=== PATIENT | female | born 1930 | race Caucasian/White ===

== ENCOUNTER 2019-02-21 18:24 | Emergency (ER) | payer SELFPAY ==
[2019-02-21 19:24] LABS: Absolute Lymphocytes (CBC) 0.9 K/uL (0.7-4.9); Basophils % 0.8 % (0-1.3); Hematocrit 28.1 % (36.0-45.0); Lymphocytes % 10.9 % (15.3-44.8); MPV 7.9 fL (7.6-11.3); RBC Red Blood Cell Count 2.94 M/uL (3.86-4.86)
[2019-02-21 19:26] LABS: Protime INR 1.05
[2019-02-21 19:43] LABS: ALT/SGPT 14 U/L (12-78); AST/SGOT 15 U/L (15-37); Albumin 3.4 g/dL (3.4-5.0); Alkaline Phosphatase 88 U/L (45-117); BUN Blood Urea Nitrogen 20 mg/dL (7-18); Bicarbonate 29 mmol/L (21-32); Bilirubin Direct < 0.1 mg/dL (0-0.2); Bilirubin Total 0.2 mg/dL (0.2-1.0); Glucose Level 107 mg/dL (74-106); Magnesium 2.1 mg/dL (1.8-2.4); NT PRO-BNP 1458 pg/mL (<450); Potassium 3.8 mmol/L (3.5-5.1); Protein, Total 7.2 g/dL (6.4-8.2); Sodium Level 142 mmol/L (136-145); Troponin (Emerg Dept Use Only) < 0.02 ng/mL (0.0-0.045)
--- NOTE | 2019-02-21 19:55 | RAD REPORT ---
EXAM DESCRIPTION: CT - Head Brain Wo Cont - 02/21/2019 7:34 pm CLINICAL HISTORY: Weakness, slurred speech COMPARISON: None. TECHNIQUE: Axial 5 mm thick images of the head were obtained without IV contrast. All CT scans are performed using dose optimization technique as appropriate and may include automated exposure control or mA/KV adjustment according to patient size. FINDINGS: No intracranial hemorrhage, mass, edema or shift of mid-line structures. No acute cortical based infarction. No cortical edema or sulcal effacement. Moderate severity atrophy is present. Adva nced chronic ischemic changes are seen. No abnormal extra-axial fluid collections. Ventricles are in proportion to volume loss. Mastoid air cells and visualized portions of the paranasal sinuses are clear. No acute bony findings. IMPRESSION: No hemorrhage is present. No acute cortical based infarction seen. Moderate severity atrophy and advanced chronic ischemic changes are present. Chronic ischemic changes can mask nonhemorrhagic acute infarction. MR brain followup can be obtained if there is ongoing concern for acute ischemia.
[2019-02-21] MEDS ORDERED: FENTANYL CITR 100 MCG/2 ML ONE (20:00)
--- NOTE | 2019-02-21 20:56 | RAD REPORT ---
EXAM DESCRIPTION: RAD - Chest Single View - 02/21/2019 8:09 pm CLINICAL HISTORY: Weakness, shortness of breath COMPARISON: None. TECHNIQUE: AP portable chest image was obtained 1954 hours . FINDINGS: No focal lung parenchymal process. Interstitial pattern is accentuated by portable techniq ue. This is probably baseline. Heart and vasculature are normal. No measurable pleural effusion and n o pneumothorax. No acute bony abnormality seen. No acute aortic findings suspected. IMPRESSION: No acute cardiopulmonary process.
--- NOTE | 2019-02-21 20:57 | RAD REPORT ---
EXAM DESCRIPTION: RAD - Hip Left 2 View - 02/21/2019 8:09 pm CLINICAL HISTORY: Left hip pain COMPARISON: None. FINDINGS: AP and frogleg views of the left hip were obtained. There is no fracture or dislocation. N o AVN or focal femoral head abnormality. No significant degenerative change. Mild SI joint degenerati ve change present. Numerous phleboliths along the pelvic floor. No suspicious soft tissue finding. IMPRESSION: Negative left hip examination for acute or significant findings.
[2019-02-21 22:04] LABS: Urine Bacteria <20 /HPF (<20); Urine Culture Reflex Order NOT NEEDED; Urine RBC <5 /HPF (NONE SEEN)
[2019-02-21 22:46] LABS: Urine Blood NEGATIVE (NEG); Urine Glucose NEGATIVE (NEG); Urine Protein NEGATIVE (NEG); Urine Specific Gravity 1.015 (1.005-1.030); Urine pH 5.5 (5.0-7.0)
--- NOTE | 2019-02-21 22:53 | ER ---
Nurse's Notes 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 Transition of care: patient was not received from another setting of care. Onset of symptoms was February 21, 2019. Risk Assessment: Do you want to hurt yourself or someone else? Patient reports no desire to harm self or others. Initial Sepsis Screen: Does the patient meet any 2 criteria? No. Patient's initial sepsis screen is negative. Does the patient have a suspected source of infection? No. Patient's initial sepsis screen is negative. Care prior to arrival: Glucose check: 108. 18:34 Method Of Arrival: EMS: [facility] 18:34 Acuity: NELLIE 3 ph Historical: - Allergies: 18:39 PENICILLINS; ph - PMHx: 18:39 CVA; Hypertension; ph - Immunization history:: Adult Immunizations up to date. - Social history:: Smoking status: Patient/guardian denies using tobacco. - Ebola Screening: : Patient negative for fever greater than or equal to 101.5 degrees Fahrenheit, and additional compatible Ebola Virus Disease symptoms. Screenin:14 Abuse screen: Denies threats or abuse. Nutritional screening: No deficits noted. jd3 Tuberculosis screening: No symptoms or risk factors identified. VAN Screening: Arm Drift: Patient shows no arm weakness. Patient is VAN negative. Fall Risk Ambulatory Aid- Crutches/Cane/Walker (15 pts). Gait- Weak (10 pts.). Mental Status- Oriented to own ability (0 pts). Total Anton Fall Scale indicates Low Risk Score (25-44 pts). Fall prevention measures have been instituted. Side Rails Up X 2 Placed close to Nursing Station Frequent Obs/Assesments occuring Family Present and informed to notify staff if they need to leave bedside. Assessment: 19:11 General: Appears in no apparent distress. uncomfortable, Behavior is calm, cooperative, jd3 appropriate for age. Pain: Complains of pain in left hip Quality of pain is described as aching. Neuro: Level of Consciousness is awake, alert, obeys commands, Oriented to person, place, time, situation, Weakness Speech is slurred, Reports reports history of CVA with right sided deficits. family reports increased right sided deficits. last seen normal was 1200 02/21/19.. Cardiovascular: Heart tones S1 S2 present Capillary refill < 3 seconds Patient's skin is warm and dry. Respiratory: Airway is patent Respiratory effort is even, unlabored, Respiratory pattern is regular, symmetrical, Breath sounds are clear bilaterally. GI: No signs and/or symptoms were reported involving the gastrointestinal system. : No signs and/or symptoms were reported regarding the genitourinary system. EENT: No signs and/or symptoms were reported regarding the EENT system. Derm: Skin is intact, Skin is dry, Skin is normal, Skin temperature is warm. Musculoskeletal: Circulation, motion, and sensation intact. 19:57 Reassessment: Patient appears in no apparent distress at this time. Patient and/or jd3 family updated on plan of care and expected duration. Pain level reassessed. Patient is alert, oriented x 3, equal unlabored respirations, skin warm/dry/pink. 20:59 Reassessment: Patient appears in no apparent distress at this time. No changes from jd3 previously documented assessment. Patient and/or family updated on plan of care and expected duration. Pain level reassessed. Patient is alert, oriented x 3, equal unlabored respirations, skin warm/dry/pink. 21:49 Reassessment: Patient appears in no apparent distress at this time. Patient and/or jd3 family updated on plan of care and expected duration. Pain level reassessed. Patient is alert, oriented x 3, equal unlabored respirations, skin warm/dry/pink. awaiting results and disposition form provider. IV is sialine locked with clean site, no redness or swelling noted to the area. pt in bed with rails up X 2. call santiago in reach, family at bedside. Patient states feeling better. 22:51 Reassessment: Patient appears in no apparent distress at this time. Patient and/or jd3 family updated on plan of care and expected duration. Pain level reassessed. Patient is alert, oriented x 3, equal unlabored respirations, skin warm/dry/pink. awaiting disposition. 23:00 Reassessment: call made to [facility] spoke to grace thru phone rr5 she said to call mr ramírez for the transportation. 23:17 Reassessment: Patient appears in no apparent distress at this time. Patient and/or jd3 family updated on plan of care and expected duration. Pain level reassessed. Patient is alert, oriented x 3, equal unlabored respirations, skin warm/dry/pink. family reported understanding of discharge instructions, assisted pt to car with wheelchair. Vital Signs: 18:38 BP 129 / 53; Pulse 69; Resp 18; Temp 98.2; Pulse Ox 100% on R/A; ph 19:56 BP 159 / 97; Pulse 75; Resp 18 S; Pulse Ox 98% on R/A; jd3 20:58 BP 130 / 89; Pulse 71; Resp 17 S; Pulse Ox 99% on R/A; jd3 21:51 BP 164 / 62; Pulse 76; Resp 17 S; Pulse Ox 99% on R/A; jd3 22:52 BP 149 / 62; Pulse 74; Resp 17 S; Pulse Ox 100% on R/A; jd3 NIH Stroke Scale Scores: 18:53 NIHSS Score: 1 jr ED Course: 18:30 Patient arrived in ED. ph 18:34 Edin Emerson PA is PHCP. jr8 18:34 German Lazaro MD is Attending Physician. jr8 18:38 Triage completed. ph 18:39 Arm band placed on Patient placed in an exam room. ph 19:02 Germaine Beck, RN is Primary Nurse. ph 19:03 Jeff Lamas, MADDY is Primary Nurse. jd3 19:15 Inserted saline lock: 22 gauge in right antecubital area, using aseptic technique. jd3 Blood collected. placed by [facility]. 19:16 Patient has correct armband on for positive identification. Placed in gown. Bed in low jd3 position. Call light in reach. Side rails up X2. Adult w/ patient. 19:34 CT completed. Patient tolerated procedure well. Patient moved back from CT. bq 21:45 Straight cath inserted, using sterile technique, 16 Fr. Specimen obtained. Returned jd3 clear yellow urine. Patient tolerated well. 23:17 No provider procedures requiring assistance completed. IV discontinued, intact, jd3 bleeding controlled, No redness/swelling at site. Pressure dressing applied. Administered Medications: 20:07 Drug: fentaNYL (PF) 25 mcg {Note: rass 0.} Route: IVP; Site: right antecubital; rr5 21:05 Follow up: Response: No adverse reaction jd3 Outcome: 22:52 Discharge ordered by MD. cueva 23:17 Discharged to home via wheelchair, with family. jd3 23:17 Condition: stable 23:17 Discharge instructions given to patient, family, Instructed on discharge instructions, follow up and referral plans. Demonstrated understanding of instructions, follow-up care. 23:18 Patient left the ED. jd3 NIH Stroke Scale - NIH Stroke Score Date: 02/21/2019 Time: 18:53 Total Score = 1 1a. Level of Consciousness (LOC) - 0(Alert) 1b. Level of Consciousness (LOC) (Year \T\ Age) - 0(Both) 1c. LOC Commands (Open \T\ Closes Eyes/Well Puller) - 0(Both) 2. Best Gaze (Lateral Gaze Paresis) - 0(Normal) 3. Visual Field Loss - 0(No visual loss) 4. Facial Palsy - 0(Normal) 5a. Left Arm: Motor (10-second hold) - 0(No drift) 5b. Right Arm: Motor (10-second hold) - 0(No drift) 6a. Left Leg: Motor (5-second hold - always test supine) - 0(No drift) 6b. Right Leg: Motor (5-second hold - always test supine) - 0(No drift) 7. Limb Ataxia (finger/nose \T\ heel/swift - test with eyes open) - 0(Absent) 8. Sensory Loss (pinprick arms/legs/face) - 0(Normal) 9. Best Language: Aphasia (description/naming/reading) - 0(No aphasia) 10. Dysarthria (speech clarity - read or repeat words) - 1(Mild to Moderate) 11. Extinction and Inattention (visual/tactile/auditory/spatial/personal) - 0(No abnormality) Initials: 8 Signatures: Verna Raymond Josh, PA PA jr8 Germaine Beck, RN RN Jeff Estevez RN RN jd3 Fernando Guillen, RN RN rr5 Corrections: (The following items were deleted from the chart) 21:53 21:49 Reassessment: Patient appears in no apparent distress at this time. jd3 Patient and/or family updated on plan of care and expected duration. Pain level reassessed. Patient is alert, oriented x 3, equal unlabored respirations, skin warm/dry/pink. awaiting results and disposition form provider. IV is sialine locked with clean site, no redness or swelling noted to the area. pt in bed with rails up X 2. call santiago in reach, family at bedside. Patient states feeling better. jjass
--- NOTE | 2019-02-21 22:53 | EDPHYS ---
Physician Documentation [facility] Name: Verna Talbert Age: 88 yrs Sex: Female : 1930 Arrival Date: 02/21/2019 Time: 18:30 Bed 6 Private MD: ALLA Physician German Lazaro HPI: 02/21 18:53 This 88 yrs old Female presents to ER via EMS with complaints of General jr8 Weakness. 18:53 The patient's problem is reported as dysphasia, slurred speech, slow speech. Onset: The jr8 symptoms/episode began/occurred acutely, today. Duration: This was a single incident. Context: the episode(s) [facility], [facility], symptoms became apparent at 12:00. The symptoms are alleviated by nothing. The symptoms are aggravated by nothing. Associated signs and symptoms: The patient has no apparent associated signs or symptoms. Severity of symptoms: At their worst the symptoms were mild in the emergency department the symptoms are unchanged. Patient's baseline: Neuro: alert and fully oriented, Motor: right-sided weakness, Ambulation: walks with assist only, uses walker, Speech: slow, slurred, The patient has a previous history of CVA. It is unknown whether or not the patient has had similar symptoms in the past. The patient has been recently seen by a physician: the patient's primary care provider. Patient per family had recent stroke this past December. Has been in and out of hospitals and rehab. Stated that she had to get off her Eliquis from bleeding complications. Came in today for increased slurred speech and general weakness. Normally can utilize walker but today has been unable too . Historical: - Allergies: 18:39 PENICILLINS; ph - PMHx: 18:39 CVA; Hypertension; ph - Immunization history:: Adult Immunizations up to date. - Social history:: Smoking status: Patient/guardian denies using tobacco. - Ebola Screening: : Patient negative for fever greater than or equal to 101.5 degrees Fahrenheit, and additional compatible Ebola Virus Disease symptoms. ROS: 18:53 Eyes: Negative for injury, pain, redness, and discharge, ENT: Negative for injury, jr8 pain, and discharge, Neck: Negative for injury, pain, and swelling, Cardiovascular: Negative for chest pain, palpitations, and edema, Respiratory: Negative for shortness of breath, cough, wheezing, and pleuritic chest pain, Abdomen/GI: Negative for abdominal pain, nausea, vomiting, diarrhea, and constipation, Back: Negative for injury and pain, MS/Extremity: Negative for injury and deformity, Skin: Negative for injury, rash, and discoloration. 18:53 Neuro: Positive for speech changes, weakness. Exam: 18:53 Eyes: Pupils equal round and reactive to light, extra-ocular motions intact. Lids and jr8 lashes normal. Conjunctiva and sclera are non-icteric and not injected. Cornea within normal limits. Periorbital areas with no swelling, redness, or edema. ENT: Nares patent. No nasal discharge, no septal abnormalities noted. Tympanic membranes are normal and external auditory canals are clear. Oropharynx with no redness, swelling, or masses, exudates, or evidence of obstruction, uvula midline. Mucous membranes moist. Neck: Trachea midline, no thyromegaly or masses palpated, and no cervical lymphadenopathy. Supple, full range of motion without nuchal rigidity, or vertebral point tenderness. No Meningismus. Cardiovascular: Regular rate and rhythm with a normal S1 and S2. No gallops, murmurs, or rubs. Normal PMI, no JVD. No pulse deficits. Respiratory: Lungs have equal breath sounds bilaterally, clear to auscultation and percussion. No rales, rhonchi or wheezes noted. No increased work of breathing, no retractions or nasal flaring. Abdomen/GI: Soft, non-tender, with normal bowel sounds. No distension or tympany. No guarding or rebound. No evidence of tenderness throughout. Back: No spinal tenderness. No costovertebral tenderness. Full range of motion. Skin: Warm, dry with normal turgor. Normal color with no rashes, no lesions, and no evidence of cellulitis. MS/ Extremity: Pulses equal, no cyanosis. Neurovascular intact. Full, normal range of motion. 18:53 Neuro: Orientation: to person, place \T\ time. Mentation: lucid, able to follow commands, Memory: is normal, Cranial nerves: CN I not tested, CN II- XII are normal as tested, extraocular movements are intact, Nystagmus is absent. Speech is slowed, slurred, Tongue strength is normal, Cerebellar function: normal finger to nose testing, Motor: moves all fours, strength is 4/5 in the right hand, left hand, right foot, left foot, right arm, left arm, right leg and left leg, Sensation: no obvious gross deficits, Gait: not tested. seizure activity, is not displayed by the patient, Abnormal movements: there are no abnormal movements. 22:52 Radiologist reports: negative [facility] Vital Signs: 18:38 BP 129 / 53; Pulse 69; Resp 18; Temp 98.2; Pulse Ox 100% on R/A; ph 19:56 BP 159 / 97; Pulse 75; Resp 18 S; Pulse Ox 98% on R/A; jd3 20:58 BP 130 / 89; Pulse 71; Resp 17 S; Pulse Ox 99% on R/A; jd3 21:51 BP 164 / 62; Pulse 76; Resp 17 S; Pulse Ox 99% on R/A; jd3 22:52 BP 149 / 62; Pulse 74; Resp 17 S; Pulse Ox 100% on R/A; jd3 NIH Stroke Scale Scores: 18:53 NIHSS Score: 1 [facility] MDM: 18:34 Patient medically screened. [facility] 22:50 Data reviewed: vital signs, nurses notes, lab test result(s), EKG, radiologic studies, jr8 CT scan, plain films. Data interpreted: Pulse oximetry: on room air is 99 %. Interpretation: normal. Counseling: I had a detailed discussion with the patient and/or guardian regarding: the historical points, exam findings, and any diagnostic results supporting the discharge/admit diagnosis, lab results, radiology results, the need for outpatient follow up, a family practitioner, a neurologist, to return to the emergency department if symptoms worsen or persist or if there are any questions or concerns that arise at home. ED course: Patient at baseline currently. No acute findings on labs, CT, EKG, or CXR. Will let patient go back to [place] since she is feeling well and with no complaint at this time. Family agrees and without any complaint or concern as well . 02/21 18:35 Order name: Basic Metabolic Panel [facility] 02/21 18:35 Order name: CBC with Diff [facility] 02/21 18:35 Order name: LFT's [facility] 02/21 18:35 Order name: Magnesium [facility] 02/21 18:35 Order name: NT PRO-BNP 02/21 18:35 Order name: PT-INR [facility] 02/21 18:35 Order name: Troponin (emerg Dept Use Only) [facility] 02/21 19:25 Order name: CBC with Automated Diff; Complete Time: 19:39 EDMS 02/21 19:26 Order name: Protime (+INR); Complete Time: 19:39 EDMS 02/21 19:44 Order name: Basic Metabolic Panel; Complete Time: 20:22 EDMS 02/21 19:44 Order name: Liver (Hepatic) Function; Complete Time: 20:22 EDMS 02/21 19:44 Order name: Troponin (Emerg Dept Use Only); Complete Time: 20:22 EDMS 02/21 19:44 Order name: NT PRO-BNP; Complete Time: 20:22 EDMS 02/21 19:44 Order name: Magnesium; Complete Time: 20:22 EDMS 02/21 18:35 Order name: XRAY Chest (1 view) [facility] 02/21 18:35 Order name: EKG; Complete Time: 18:36 [facility] 02/21 18:35 Order name: Cardiac monitoring; Complete Time: 19:58 [facility] 02/21 18:35 Order name: EKG - Nurse/Tech; Complete Time: 19:58 [facility] 02/21 18:35 Order name: IV Saline Lock; Complete Time: 19:58 [facility] 02/21 18:35 Order name: Labs collected and sent; Complete Time: 19:58 [facility] 02/21 18:35 Order name: O2 Per Protocol; Complete Time: 19:03 [facility] 02/21 18:35 Order name: O2 Sat Monitoring; Complete Time: 19:03 [facility] 02/21 18:47 Order name: XRAY Hip LEFT 2 view [facility] 02/21 19:11 Order name: CT Head Brain wo Cont [facility] 02/21 20:58 Order name: CT; Complete Time: 21:02 EDMS 02/21 21:27 Order name: Urine Microscopic Only [facility] 02/21 21:33 Order name: RAD; Complete Time: 21:57 EDMS 02/21 21:33 Order name: RAD; Complete Time: 21:57 EDMS 02/21 22:05 Order name: Urine Dipstick--Ancillary (enter results); Complete Time: 22:50 ar5 02/21 21:27 Order name: Urine Dipstick-Ancillary (obtain specimen); Complete Time: 21:46 jr8 02/21 21:27 Order name: Straight Cath; Complete Time: 21:43 jr8 Administered Medications: 20:07 Drug: fentaNYL (PF) 25 mcg {Note: rass 0.} Route: IVP; Site: right antecubital; rr5 21:05 Follow up: Response: No adverse reaction jd3 Disposition: 02/22 13:24 Co-signature as Attending Physician, German Lazaro MD I agree with the assessment and anmol plan of care. Disposition: 02/21/19 22:52 Discharged to Home. Impression: Weakness, Dysphasia. - Condition is Stable. - Discharge Instructions: Weakness. - Medication Reconciliation Form, Thank You Letter, Antibiotic Education, Prescription Opioid Use form. - Follow up: Private Physician; When: 1 - 2 days; Reason: Recheck today's complaints, Continuance of care, Re-evaluation by your physician. - Problem is new. - Symptoms have improved. NIH Stroke Scale - NIH Stroke Score Date: 02/21/2019 Time: 18:53 Total Score = 1 1a. Level of Consciousness (LOC) - 0(Alert) 1b. Level of Consciousness (LOC) (Year \T\ Age) - 0(Both) 1c. LOC Commands (Open \T\ Closes Eyes/[employer]er Interior Assemblies) - 0(Both) 2. Best Gaze (Lateral Gaze Paresis) - 0(Normal) 3. Visual Field Loss - 0(No visual loss) 4. Facial Palsy - 0(Normal) 5a. Left Arm: Motor (10-second hold) - 0(No drift) 5b. Right Arm: Motor (10-second hold) - 0(No drift) 6a. Left Leg: Motor (5-second hold - always test supine) - 0(No drift) 6b. Right Leg: Motor (5-second hold - always test supine) - 0(No drift) 7. Limb Ataxia (finger/nose \T\ heel/swift - test with eyes open) - 0(Absent) 8. Sensory Loss (pinprick arms/legs/face) - 0(Normal) 9. Best Language: Aphasia (description/naming/reading) - 0(No aphasia) 10. Dysarthria (speech clarity - read or repeat words) - 1(Mild to Moderate) 11. Extinction and Inattention (visual/tactile/auditory/spatial/personal) - 0(No abnormality) Initials: jr8 Signatures: Dispatcher [employer] EDGerman Foster MD MD cha Roszak, Josh, PA PA jr8 Germaine Beck, RN RN Jeff Estevez RN RN jd3 Fernando Guillen RN RN rr5 Corrections: (The following items were deleted from the chart) 02/21 23:18 22:52 02/21/2019 22:52 Discharged to Home. Impression: Weakness; Dysphasia. jd3 Condition is Stable. Forms are Medication Reconciliation Form, Thank You Letter, Antibiotic Education, Prescription Opioid Use. Follow up: Private Physician; When: 1 - 2 days; Reason: Recheck today's complaints, Continuance of care, Re-evaluation by your physician. Problem is new. Symptoms have improved. jr8
[2019-02-21 23:33] VITALS: TEMP 98.2
[2019-02-21 23:38] VITALS: BP 149/62; O2SAT 100
--- NOTE | 2019-02-22 12:45 | EKG ---
Test Date: 2019-02-21 Test Time: 19:39:45 Infection Control Preventionist: ROGER MEASUREMENT RESULTS: Intervals: Rate: 64 SC: 234 QRSD: 118 QT: 442 QTc: 455 [place]: P: 89 SC: 234 QRS: 35 T: 231 INTERPRETIVE STATEMENTS: Sinus rhythm with 1st degree AV block Incomplete left bundle branch block ST & T wave abnormality, consider inferolateral ischemia Abnormal ECG No previous ECG available for comparison Electronically Signed On 02-22-19 12:43:40 STORE TEAM MEMBER by Migue Greene
== END 2019-02-21 23:18 | disposition home or self-care (01) ==
LOC: ER 18:24
DX: R53.1 Weakness (principal); I10 Essential (primary) hypertension; Z86.73 Personal history of transient ischemic attack (TIA), and cerebral infarction without residual deficits; Z88.0 Allergy status to penicillin
CPT/HCPCS: 36415; 51702; 70450; 71045; 80048; 80076; 81003; 81015; 83735; 83880; 84484; 85025; 85610; 93005; 96374; 99284; J3010

== ENCOUNTER 2019-03-14 13:12 | Emergency (ER) | payer OTHER ==
--- OUTSIDE RECORDS SUMMARY | 2019-03-14 13:15 | XMS REPORT ---
:1930 [facility] [address] [place] [address] Care Team Providers Name Role Phone SMILEY VARELA Unavailable Unavailable Problems This patient has no known problems. Allergies, Adverse Reactions, Alerts Allergy Name Allergy Status Severity Reaction(s) Onset Inactive Treating Comments Type Date Date Clinician penicillin G DA Active SV 2017-01 00:00:0 0 Medications This patient has no known medications. Procedures and Interventions Procedure Date / Time Performed Performing Clinician 0HBRXLOI 2019-01-07 00:00:00 0HBRXZZ 2019-01-07 00:00:00 0HBRXZZ 2019-01-07 00:00:00 Results Test Description Test Time Test Comments Text Results Atomic Results Result Comments TROPONIN-I 2019-01-29 17:49:00 Test Item Value Reference Range Comments TROPONIN-I (test code=TROPI) 0.016 NG/ML 0.000-0.045 Negative: </=0.045 Positive: >/=0.046 Correlation with serial results, other cardiac markers, and clinical findings is necessary to determine the clinical significance of this result. Quantitative results using different methodologies should not be compared to one another as numerical results may varyby method. CBC W/PLT COUNT & AUTO [id number] 11:50:00 Test Item Value Reference Range Comments WHITE BLOOD CELL COUNT (BEAKER) (test saqc=887) 8.6 K/ L 3.5-10.5 RED BLOOD CELL COUNT (BEAKER) (test xdvo=599) 3.62 M/ L 3.93-5.22 HEMOGLOBIN (BEAKER) (test vdyq=676) 11.5 GM/DL 11.2-15.7 HEMATOCRIT (BEAKER) (test yita=793) 34.9 % 34.1-44.9 MEAN CORPUSCULAR VOLUME (BEAKER) (test knre=945) 96.4 fL 79.4-94.8 MEAN CORPUSCULAR HEMOGLOBIN (BEAKER) (test 31.8 pg 25.6-32.2 xgve=321) MEAN CORPUSCULAR HEMOGLOBIN CONC (BEAKER) (test 33.0 GM/DL 32.2-35.5 hzhi=547) RED CELL DISTRIBUTION WIDTH (BEAKER) (test 13.2 % 11.7-14.4 hioi=916) PLATELET COUNT (BEAKER) (test ymda=598) 199 K/CU MM 150-450 MEAN PLATELET VOLUME (BEAKER) (test ifec=136) 9.9 fL 9.4-12.3 NUCLEATED RED BLOOD CELLS (BEAKER) (test 0 /100 WBC 0-0 gbvw=095) (CELLAVISION MANUAL DIFF)2018-12-22 11:50:00 Test Item Value Reference Range Comments NEUTROPHILS - REL (CELLAVISION)(BEAKER) (test 63 % pbfx=4731) LYMPHOCYTES - REL (CELLAVISION)(BEAKER) (test 17 % toau=4421) MONOCYTES - REL (CELLAVISION)(BEAKER) (test 14 % vxef=9612) EOSINOPHILS - REL (CELLAVISION)(BEAKER) (test 3 % fwlq=2240) PROMYELOCYTES - REL (CELLAVSION)(BEAKER) (test 1 % 0-0 mzlb=6693) BANDS - REL (CELLAVISION)(BEAKER) (test hqjy=7082) 1 % 0-10 ATYPICAL LYMPHOCYTES - REL (CELLAVISION)(BEAKER) 1 % 0-0 (test nyqq=8662) NEUTROPHILS - ABS (CELLAVISION)(BEAKER) (test 5.42 K/ul 1.56-6.13 acij=1562) LYMPHOCYTES - ABS (CELLAVISION)(BEAKER) (test 1.46 K/ul 1.18-3.74 vgmh=6879) MONOCYTES - ABS (CELLAVISION)(BEAKER) (test 1.20 K/uL 0.24-0.36 xgcn=4780) EOSINOPHILS - ABS (CELLAVISION)(BEAKER) (test 0.26 K/uL 0.04-0.36 tkps=3479) PROMYELOCYTES - ABS (CELLAVISION)(BEAKER) (test 0.09 K/uL 0.00-0.00 ngzd=0347) BANDS - ABS (CELLAVISION)(BEAKER) (test cvsh=7293) 0.09 K/uL 0.00-0.80 ATYPICAL LYMPHOCYTES - ABS (CELLAVISION)(BEAKER) 0.09 K/uL 0.00-0.00 (test hghm=7197) TOTAL COUNTED (BEAKER) (test sknr=4712) 100 RBC MORPHOLOGY (BEAKER) (test cuky=386) Normal WBC MORPHOLOGY (BEAKER) (test nyox=483) Normal PLT MORPHOLOGY (BEAKER) (test agkj=876) Normal ARTIFACT (CELLAVISION)(BEAKER) (test fcxb=2113) Present PLATELET CONCENTRATION (CELLAVISION)(BEAKER) (test Adequate ozjv=7783) Received comment: User comments: Slide comments:BASIC METABOLIC [id number] 05:52:00 Test Item Value Reference Range Comments SODIUM (BEAKER) (test 142 meq/L 136-145 bylg=417) POTASSIUM (BEAKER) (test 3.8 meq/L 3.5-5.1 Specimen slightly sjzm=676) hemolyzed CHLORIDE (BEAKER) (test 107 meq/L 98-107 bzre=560) CO2 (BEAKER) (test 25 meq/L 22-29 cenw=707) BLOOD UREA NITROGEN 29 mg/dL 7-21 (BEAKER) (test srei=037) CREATININE (BEAKER) (test 1.57 mg/dL 0.57-1.25 Specimen slightly djtj=141) hemolyzed GLUCOSE RANDOM (BEAKER) 109 mg/dL 70-105 (test pzpf=021) CALCIUM (BEAKER) (test 9.7 mg/dL 8.4-10.2 jhna=809) EGFR (BEAKER) (test 31 mL/min/1.73 sq m ESTIMATED GFR IS NOT pqnr=5123) ACCURATE CREATININE CLEARANCE IN PREDICTING GLOMERULAR FILTRATION RATE. ESTIMATED GFR IS NOT APPLICABLE FOR DIALYSIS PATIENTS. TROPONIN [id number] 06:35:00 Test Item Value Reference Range Comments TROPONIN I (BEAKER) (test pnrm=366) 0.02 ng/mL 0.00-0.03 Troponin I (TnI) levels must be interpreted in the context of the presenting symptoms and the clinical findings. Elevated TnI levels indicate myocardial damage, but are not specific for ischemic heart disease. Elevated TnI levels are seen in patients with other cardiac conditions (including myocarditis and congestive heart failure), and slight TnI elevations occur in patients with other conditions, including sepsis, renal failure, acidosis, acute neurological disease, and persistent tachyarrhythmia.BASIC METABOLIC [id number] 09:18:00 Test Item Value Reference Range Comments SODIUM (BEAKER) (test 140 meq/L 136-145 ehja=383) POTASSIUM (BEAKER) (test 4.5 meq/L 3.5-5.1 jepm=001) CHLORIDE (BEAKER) (test 108 meq/L 98-107 ywsz=061) CO2 (BEAKER) (test cajn=072) 23 meq/L 22-29 BLOOD UREA NITROGEN (BEAKER) 36 mg/dL 7-21 (test jjha=930) CREATININE (BEAKER) (test 1.65 mg/dL 0.57-1.25 ipbd=185) GLUCOSE RANDOM (BEAKER) 102 mg/dL 70-105 (test tszo=791) CALCIUM (BEAKER) (test 9.4 mg/dL 8.4-10.2 fwiz=486) EGFR (BEAKER) (test INSUFFICIENT CLINICAL DATA TO tyrh=7738) CALCULATE ESTIMATED GFR. HEMOGLOBIN [id number] 08:56:00 Test Item Value Reference Range Comments HEMOGLOBIN A1C (BEAKER) (test favj=853) 5.7 % 4.3-6.1 TROPONIN [id number] 08:29:00 Test Item Value Reference Range Comments TROPONIN I (BEAKER) (test rifb=703) 0.04 ng/mL 0.00-0.03 Troponin I (TnI) levels must be interpreted in the context of the presenting symptoms and the clinical findings. Elevated TnI levels indicate myocardial damage, but are not specific for ischemic heart disease. Elevated TnI levels are seen in patients with other cardiac conditions (including myocarditis and congestive heart failure), and slight TnI elevations occur in patients with other conditions, including sepsis, renal failure, acidosis, acute neurological disease, and persistent tachyarrhythmia.POCT-GLUCOSE [id number] 05:12:00 Test Item Value Reference Range Comments POC-GLUCOSE METER (LYNETTE) 111 mg/dL 70-[address] [facility] [address] (test prwk=1178) [facility] [address] [address]AY - LOW MOLECULAR [id number] 03:28:00 Test Item Value Reference Range Comments LOVENOX-ANTI 10A (LYNETTE) (test rztl=6019) > u/ml 0.60-2.00 Anti-Factor 10-A Level (Heparin Assay for Low Molecular Weight Heparin) Monitoring Guidelines: Blood samples should be obtained 4 hours post subcutaneous injection (time of Peak level) Therapeutic Peak Levels: 0.6-1.0 units/mL twice daily enoxaparin 1.0-2.0 units/mL once daily enoxaparinRef: CHEST 2012;141:[id number] 01:36:00 Test Item Value Reference Range Comments TROPONIN I (LYNETTE) (test emju=973) 0.03 ng/mL 0.00-0.03 Troponin I (TnI) levels must be interpreted in the context of the presenting symptoms and the clinical findings. Elevated TnI levels indicate myocardial damage, but are not specific for ischemic heart disease. Elevated TnI levels are seen in patients with other cardiac conditions (including myocarditis and congestive heart failure), and slight TnI elevations occur in patients with other conditions, including sepsis, renal failure, acidosis, acute neurological disease, and persistent tachyarrhythmia.MR, BRAIN, WITHOUT [id number] 00 :29:00Reason for exam:->Ischemic Stroke EvaluationFINAL REPORT Exam: MRI brain without contrast. Comparison: None. Clinical indication: Ischemic Stroke Evaluation; facial droop and slurred speech Technique: Multiplanar multi sequential MR imaging of the brain was performed without the administration of intravenous contrast. Findings:There are foci of restricted diffusion in the posterior limb of the left internal capsule consistent with an acute infarct. There is a chronic hemorrhagic right basal ganglia infarct. There are moderate white matter microvascular ischemic changes. There are tiny foci of susceptibility artifact in the bilateral cerebral hemispheres and left frontal lobe compatible with remote microhemorrhages. There is no acute intracranial hemorrhage, intracranial mass, mass effect, extra-axial collection, hydrocephalus or herniation. The skull base flow-voids are seen in keeping with their patency. The visualized paranasal sinuses and mastoid air cells are clear. There are bilateral lens replacements. The sella and parasellar regions are unremarkable. The craniocervical junction is normal. Impression:Acute infarct in the posterior limb of the left internal capsule. No acute intracranial hemorrhage or mass effect.Moderate white matter microvascular ischemic changes. Chronic hemorrhagic right basal ganglia infarct.Remote microhemorrhages in the supratentorial and infratentorial brain. Findings discussed with covering neurology resident at approximately 12:29 AM 12/19/2018. Signed: Rosita Yepez MDReport Verified Date/Time: 12/19/2018 00:29:42 LIPID [id number] 22:50:00 Test Item Value Reference Range Comments TRIGLYCERIDES (BEAKER) (test vjis=463) 233 mg/dL CHOLESTEROL (BEAKER) (test ygql=180) 210 mg/dL HDL CHOLESTEROL (BEAKER) (test bkkg=388) 36 mg/dL LDL CHOLESTEROL CALCULATED (BEAKER) (test 127 mg/dL iwet=636) Triglyceride Reference Range: Low Risk <150 Borderline 150- 199 High Risk 200-499 Very High Risk >=500Cholesterol Reference Range: Low Risk <200 Borderline 200-239 High Risk > 240HDL Cholesterol Reference Range: Low Risk >=60 High Risk <40LDL Cholesterol Reference Range: Optimal <100 Near Optimal 100-129 Borderline 130-159 High 160-189 Very High >=190TSH/FREE T4 IF [id number] 22:16:00 Test Item Value Reference Range Comments THYROID STIMULATING HORMONE (BEAKER) (test 1.75 uIU/mL 0.35-4.94 ncct=992) VITAMIN B12 AND [id number] 22:16:00 Test Item Value Reference Range Comments VITAMIN B12 (BEAKER) (test ybey=889) 1068 pg/mL 213-816 FOLATE (BEAKER) (test cqyg=632) > ng/mL >=7.0 B-TYPE NATRIURETIC FACTOR (BNP)2018-12-18 19:07:00 Test Item Value Reference Range Comments B-TYPE NATRIURETIC PEPTIDE (BEAKER) (test 162 pg/mL 0-100 koyk=681) TROPONIN [id number] 19:06:00 Test Item Value Reference Range Comments TROPONIN I (BEAKER) (test ygkn=609) 0.01 ng/mL 0.00-0.03 Troponin I (TnI) levels must be interpreted in the context of the presenting symptoms and the clinical findings. Elevated TnI levels indicate myocardial damage, but are not specific for ischemic heart disease. Elevated TnI levels are seen in patients with other cardiac conditions (including myocarditis and congestive heart failure), and slight TnI elevations occur in patients with other conditions, including sepsis, renal failure, acidosis, acute neurological disease, and persistent tachyarrhythmia.BASIC METABOLIC [id number] 19:04:00 Test Item Value Reference Range Comments SODIUM (BEAKER) (test 137 meq/L 136-145 esfk=329) POTASSIUM (BEAKER) (test 4.2 meq/L 3.5-5.1 ymfx=137) CHLORIDE (BEAKER) (test 104 meq/L 98-107 sdxf=957) CO2 (BEAKER) (test vfyg=564) 25 meq/L 22-29 BLOOD UREA NITROGEN (BEAKER) 46 mg/dL 7-21 (test kpji=011) CREATININE (BEAKER) (test 1.85 mg/dL 0.57-1.25 udmz=299) GLUCOSE RANDOM (BEAKER) 106 mg/dL 70-105 (test aizt=546) CALCIUM (BEAKER) (test 9.9 mg/dL 8.4-10.2 yzcm=936) EGFR (BEAKER) (test INSUFFICIENT CLINICAL DATA TO wlqr=5895) CALCULATE ESTIMATED GFR. [id number] 18:59:00 Test Item Value Reference Range Comments MAGNESIUM (BEAKER) (test xemm=092) 1.9 mg/dL 1.6-2.6 CREATINE KINASE (CK)2018-12-18 18:59:00 Test Item Value Reference Range Comments CREATINE KINASE TOTAL (BEAKER) (test rrfv=625) 199 U/L 29-200 URINALYSIS W/ [id number] 18:55:00 Test Item Value Reference Range Comments COLOR (BEAKER) (test gphv=808) Yellow CLARITY (BEAKER) (test ehgy=223) Clear SPECIFIC GRAVITY UA (BEAKER) (test xbfu=261) 1.021 1.001-1.035 PH UA (BEAKER) (test jlja=280) 7.0 5.0-8.0 PROTEIN UA (BEAKER) (test nsqj=805) 20 mg/dL Negative GLUCOSE UA (BEAKER) (test rirm=745) Negative Negative KETONES UA (BEAKER) (test lmwa=756) Negative Negative BILIRUBIN UA (BEAKER) (test syqg=943) Negative Negative BLOOD UA (BEAKER) (test dtje=835) Negative Negative NITRITE UA (BEAKER) (test zumx=885) Negative Negative LEUKOCYTE ESTERASE UA (BEAKER) (test dtfh=452) Negative Negative UROBILINOGEN UA (BEAKER) (test fhub=799) 0.2 mg/dL 0.2-1.0 RBC UA (BEAKER) (test qwhu=867) 0 /HPF WBC UA (BEAKER) (test mopx=839) < /HPF SQUAMOUS EPITHELIAL (BEAKER) (test eiag=112) < /HPF SOURCE(BEAKER) (test rnrx=2523) CT, CAROTID, [id number] 18:51:00Reason for exam:->GENERALIZED WEAKNESS, NOT ASSOCIATED WITH EXTREMITIESR sided weaknessReason forexam:-> CEREBROVASCULAR ACCIDENTReason for exam:->APHASIAWhat is the patient's sedation requirement?->No SedationFINAL REPORT CT, CTANGIO BRAIN, CT, CAROTID, ANGIO, CT, CEREBRAL PERFUSION ANALYSIS INDICATION: Neuro deficit, acute, stroke suspectedR sided weakness COMPARISON: Same day CT head TECHNIQUE: Rapid acquisition spiral images were obtained between the aortic arch and the cranial vertex during intravenous contrast infusion to reconstruct axial images and angiographic 3D maximum intensity projections (MIP ) .Three dimensional reformatted images were created at a dedicated workstation. Precontrast images of the brain were also obtained. Perfusion imaging technique:Arterial input function: ACAVenous outflow function: TorcularSite of normal perfusion: right anterior territory Stenosis evaluation reported in compliance with NASCET criteria. DOSE REDUCTION: Dose modulation, iterativereconstruction, and/or weight-based adjustment of the mA/kV was utilized to reduce the radiation dose to as low as reasonably achievable. FINDINGS: CTA head:No intracranial aneurysm, high-grade focal stenosis, or proximal branch vessel occlusion. Multifocal mild to moderate stenoses of the bilateral ACAs. Bilateral lead applications developer are predominantly supplied by [employer]. The major intradural venous sinuses are patent. CTA neck:Great vessel origins: No occlusion or high-grade stenosis. Carotid arteries: Atherosclerosis of the bilateral carotid bifurcations. No occlusion or high-grade stenosis. Vertebral arteries: No occlusion or high-grade stenosis. Left vertebral artery originates directly from the aortic arch. Moderate degenerative changes of the cervical spine. Cervical soft tissues are unremarkable. Multiple sub-5 mm solid and groundglass nodules within the bilateral lung apices. CT PERFUSION PARAMETRIC MAPS: CBF: SymmetricMTT: SymmetricCBV: SymmetricTTP: Symmetric IMPRESSION: Mild to moderate multifocal stenoses of the bilateral ACAs. Atherosclerosis of bilateral carotid bifurcations with less than 50% stenosis per NASCET criteria. Symmetric perfusion indices. Multiple sub-5 mm solid and groundglass nodules within the bilateral lung apices. Please correlate with patient's risk for malignancy to determine whether further imaging is needed. Per Fleischner guidelines, patient at high risk for malignancy should obtain follow-up chest CT 12 months after detection of multiple sub-6 mm nodules. Signed: Renetta Alvarez MDRort Verified Date/Time: 12/18/2018 18:51:19 CT, CTANGIO [id number] 18:51:00FINAL REPORT CT, CTANGIO BRAIN, CT, CAROTID, ANGIO, CT, CEREBRAL PERFUSION ANALYSIS INDICATION: Neuro deficit, acute, stroke suspectedR sided weakness COMPARISON: Same day CT head TECHNIQUE: Rapid acquisition spiral images were obtained between the aortic arch and the cranial vertex during intravenous contrast infusion to reconstruct axial images and angiographic 3D maximum intensity projections (MIP) .Three dimensional reformatted images were created at a dedicated workstation. Precontrast images of the brain were also obtained. Perfusion imaging technique:Arterial input function: ACAVenous outflow function: TorcularSite of normal perfusion: right anterior territory Stenosis evaluation reported in compliance with NASCET criteria. DOSE REDUCTION: Dose modulation, iterativereconstruction, and/or weight-based adjustment of the mA/kV was utilized to reduce the radiation dose to as low as reasonably achievable. FINDINGS: CTA head:No intracranial aneurysm , high-grade focal stenosis, or proximal branch vessel occlusion. Multifocal mild to moderate stenoses of the bilateral ACAs. Bilateral lead applications developer are predominantly supplied by [employer]. The major intradural venous sinuses are patent. CTA neck:Great vessel origins: No occlusion or high-grade stenosis. Carotid arteries: Atherosclerosis of the bilateral carotid bifurcations. No occlusion or high-grade stenosis. Vertebral arteries: No occlusion or high- grade stenosis. Left vertebral artery originates directly from the aortic arch. Moderate degenerative changes of the cervical spine. Cervical soft tissues are unremarkable. Multiple sub-5 mm solid and groundglass nodules within the bilateral lung apices. CT PERFUSION PARAMETRIC MAPS: CBF: SymmetricMTT: SymmetricCBV: SymmetricTTP: Symmetric IMPRESSION: Mild to moderate multifocal stenoses of the bilateral ACAs. Atherosclerosis of bilateral carotid bifurcations with less than 50% stenosis per NASCET criteria. Symmetric perfusion indices. Multiple sub-5 mm solid and groundglass nodules within the bilateral lung apices. Please correlate with patient's risk for malignancy to determine whether further imaging is needed. Per Fleischner guidelines, patient at high risk for malignancy should obtain follow-up chest CT 12 months after detection of multiple sub-6 mm nodules. Signed: Renetta Alvarez MDReport Verified Date/Time: 12/18/2018 18:51:19 CT, CEREBRAL PERFUSION [id number] 18:51:00FINAL REPORT CT, CTANGIO BRAIN, CT, CAROTID, ANGIO, CT, CEREBRAL PERFUSION ANALYSIS INDICATION: Neuro deficit, acute, stroke suspectedR sided weakness COMPARISON: Same day CT head TECHNIQUE: Rapid acquisition spiral images were obtained between the aortic arch and the cranial vertex during intravenous contrast infusion to reconstruct axial images and angiographic 3D maximum intensity projections (MIP) .Three dimensional reformatted images were created at a dedicated workstation. Precontrast images of the brain were also obtained. Perfusion imaging technique:Arterial input function: ACAVenous outflow function: TorcularSite of normal perfusion: right anterior territory Stenosis evaluation reported in compliance with NASCET criteria. DOSE REDUCTION: Dose modulation, iterativereconstruction, and/or weight-based adjustment of the mA/kV was utilized to reduce the radiation dose to as low as reasonably achievable. FINDINGS: CTA head:No intracranial aneurysm , high-grade focal stenosis, or proximal branch vessel occlusion. Multifocal mild to moderate stenoses of the bilateral ACAs. Bilateral lead applications developer are predominantly supplied by [employer]. The major intradural venous sinuses are patent. CTA neck:Great vessel origins: No occlusion or high-grade stenosis. Carotid arteries: Atherosclerosis of the bilateral carotid bifurcations. No occlusion or high-grade stenosis. Vertebral arteries: No occlusion or high- grade stenosis. Left vertebral artery originates directly from the aortic arch. Moderate degenerative changes of the cervical spine. Cervical soft tissues are unremarkable. Multiple sub-5 mm solid and groundglass nodules within the bilateral lung apices. CT PERFUSION PARAMETRIC MAPS: CBF: SymmetricMTT: SymmetricCBV: SymmetricTTP: Symmetric IMPRESSION: Mild to moderate multifocal stenoses of the bilateral ACAs. Atherosclerosis of bilateral carotid bifurcations with less than 50% stenosis per NASCET criteria. Symmetric perfusion indices. Multiple sub-5 mm solid and groundglass nodules within the bilateral lung apices. Please correlate with patient's risk for malignancy to determine whether further imaging is needed. Per Fleischner guidelines, patient at high risk for malignancy should obtain follow-up chest CT 12 months after detection of multiple sub-6 mm nodules. Signed: Renetta Alvarez MDReport Verified Date/Time: 12/18/2018 18:51:19 PT/[id number] 18:47:00 Test Item Value Reference Range Comments PROTIME (BEAKER) (test vork=178) 17.0 seconds 11.9-14.2 INR (BEAKER) (test gewf=920) 1.5 <=5.9 PARTIAL THROMBOPLASTIN TIME (BEAKER) (test 33.2 seconds 22.5-36.0 zndf=301) Effective 09/10/2018: PT Reference Range ChangeNew: 11.9-14.2 Previous: 11.7- 14.7RECOMMENDED COUMADIN/WARFARIN INR THERAPY RANGESSTANDARD DOSE: 2.0-3.0 Includes: PROPHYLAXIS for venous thrombosis, systemic embolization; TREATMENT for venous thrombosis and/or pulmonary embolus.HIGH RISK: Target INR is2.5-3.5 for patients wiht mechanical heart valves.CBC W/PLT COUNT & AUTO [id number] 18:41:00 Test Item Value Reference Range Comments WHITE BLOOD CELL COUNT (BEAKER) (test qaks=495) 9.8 K/ L 3.5-10.5 RED BLOOD CELL COUNT (BEAKER) (test dfjf=406) 3.15 M/ L 3.93-5.22 HEMOGLOBIN (BEAKER) (test ombz=902) 10.3 GM/DL 11.2-15.7 HEMATOCRIT (BEAKER) (test siyi=975) 30.7 % 34.1-44.9 MEAN CORPUSCULAR VOLUME (BEAKER) (test ebab=913) 97.5 fL 79.4-94.8 MEAN CORPUSCULAR HEMOGLOBIN (BEAKER) (test 32.7 pg 25.6-32.2 cphe=234) MEAN CORPUSCULAR HEMOGLOBIN CONC (BEAKER) (test 33.6 GM/DL 32.2-35.5 dimf=186) RED CELL DISTRIBUTION WIDTH (BEAKER) (test 13.2 % 11.7-14.4 dhyg=954) PLATELET COUNT (BEAKER) (test qsoo=986) 201 K/CU MM 150-450 MEAN PLATELET VOLUME (BEAKER) (test rhfj=983) 9.8 fL 9.4-12.3 NUCLEATED RED BLOOD CELLS (BEAKER) (test 0 /100 WBC 0-0 dplo=054) NEUTROPHILS RELATIVE PERCENT (BEAKER) (test 78 % izxu=830) LYMPHOCYTES RELATIVE PERCENT (BEAKER) (test 9 % qkfk=567) MONOCYTES RELATIVE PERCENT (BEAKER) (test 11 % qfob=699) EOSINOPHILS RELATIVE PERCENT (BEAKER) (test 1 % aveq=472) BASOPHILS RELATIVE PERCENT (BEAKER) (test 0 % yepw=622) NEUTROPHILS ABSOLUTE COUNT (BEAKER) (test 7.64 K/ L 1.56-6.13 iszm=725) LYMPHOCYTES ABSOLUTE COUNT (BEAKER) (test 0.91 K/ L 1.18-3.74 shfd=210) MONOCYTES ABSOLUTE COUNT (BEAKER) (test 1.09 K/ L 0.24-0.36 hipv=224) EOSINOPHILS ABSOLUTE COUNT (BEAKER) (test 0.12 K/ L 0.04-0.36 dffl=181) BASOPHILS ABSOLUTE COUNT (BEAKER) (test 0.04 K/ L 0.01-0.08 olgk=672) IMMATURE GRANULOCYTES-RELATIVE PERCENT (BEAKER) 0 % 0-1 (test arin=6629) CT, BRAIN/STROKE [id number] 18:04:00Reason for exam:->strokeWhat is the patient's sedation requirement?->No SedationFINAL REPORT CT, BRAIN/STROKE PROTOCOL INDICATION: Stroke, follow upstroke TECHNIQUE : Noncontrast axial imaging was obtained from the vertex to the skull base. Axial images were reconstructed using a bone algorithm. DOSE REDUCTION: Dose modulation, iterative reconstruction, and/or weight-based adjustment of the mA/ kV was utilized to reduce the radiation dose to as low as reasonably achievable. COMPARISON: None. FINDINGS: Intracranial: Advanced cerebral volume loss. Extensive confluent hypoattenuation within the periventricular and subcortical white matter are a nonspecific finding commonly attributed to chronic small vessel ischemic disease. No evidence of acute territorial infarct. There is no convincing intracranial hemorrhage; appearance of a thin hyperdense extra-axial collection along the left temporal convexity is in a region of streak artifact, and a similar findingis present on the contralateral side. No mass effect. No hydrocephalus. Osseous structures: No fracture. No suspicious lesion. Paranasal sinuses and mastoid air cells: No evidence of sinusitis. Mastoids are clear. Orbital contents: Globes are intact. IMPRESSION: 1.No acute territorial infarct. Please note that CT is insensitive for detection of small acute infarcts especially in the setting of extensive chronic microvascular disease.2.No convincing intracranial hemorrhage; streak artifact mimicking a thin hyperdense extra-axial collection along the left convexity. If there is persistent clinical concern for intracranial pathology, MR examination is recommended for further characterization. These findings were relayed to Dr. SMILEY VARLEA on 12/18/2018 6:04 PM. Signed: Renetta Alvarez Verified Date/Time: 12/18/2018 18:04:29
--- NOTE | 2019-03-14 14:05 | RAD REPORT ---
EXAM DESCRIPTION: CT - Head Brain Wo Cont - 03/14/2019 1:52 pm CLINICAL HISTORY: Facial droop COMPARISON: February 21, 2018 TECHNIQUE: Computed axial tomography of the head was obtained. IV contrast was not requested. All CT scans are performed using dose optimization technique as appropriate and may include automated exposure control or mA/KV adjustment according to patient size. FINDINGS: An intracranial bleed is not seen . The ventricles are normal in caliber. No extra-axial fluid collection is noted. Old left basal ganglia infarct Moderate low-density areas within periventricular, deep and subcortical white matter likely represent ischemic changes secondary to small vessel disease. Fluid within the sinuses/ mastoids is not seen. IMPRESSION: No acute intracranial abnormality is seen. If patient's symptoms persist MRI of the bra in would be recommended.
--- NOTE | 2019-03-14 14:15 | RAD REPORT ---
EXAM DESCRIPTION: CT - Abdomen Pelvis W Contrast - 03/14/2019 1:53 pm CLINICAL HISTORY: Abdominal pain and vomiting COMPARISON: none. TECHNIQUE: Computed axial tomography of the abdomen pelvis was obtained. 100 cc Isovue-300 was admin istered intravenously. Oral contrast was not requested which limits evaluation of bowel. All CT scans are performed using dose optimization technique as appropriate and may include automated exposure control or mA/KV adjustment according to patient size. FINDINGS: A small pericardial effusion The liver, spleen, pancreas, adrenal and kidneys appear unremarkable. There is no evidence of diverticulitis. The wall of the distal stomach appears thickened IMPRESSION: Thickening of the wall of the distal stomach may indicate inflammation or mass
--- NOTE | 2019-03-14 14:22 | RAD REPORT ---
EXAM DESCRIPTION: Bart Single View03/14/2019 2:06 pm CLINICAL HISTORY: Chest pain COMPARISON: February 21, 2019 FINDINGS: The lungs appear clear of acute infiltrate. The heart is mildly enlarged IMPRESSION: No acute abnormalities displayed
[2019-03-14 14:28] LABS: Absolute Lymphocytes (CBC) 0.9 K/uL (0.7-4.9); Basophils % 0.7 % (0-1.3); Hematocrit 24.2 % (36.0-45.0); Lymphocytes % 17.4 % (15.3-44.8); MPV 8.6 fL (7.6-11.3)
[2019-03-14 14:34] LABS: Protime INR 1.17
[2019-03-14 14:50] LABS: ALT/SGPT 10 U/L (12-78); AST/SGOT 16 U/L (15-37); Alkaline Phosphatase 68 U/L (45-117); BUN Blood Urea Nitrogen 14 mg/dL (7-18); Bicarbonate 28 mmol/L (21-32); Bilirubin Direct < 0.1 mg/dL (0-0.2); Bilirubin Total 0.3 mg/dL (0.2-1.0); Glucose Level 91 mg/dL (74-106); Magnesium 1.9 mg/dL (1.8-2.4); NT PRO-BNP 3834 pg/mL (<450); Potassium 3.6 mmol/L (3.5-5.1); Protein, Total 6.3 g/dL (6.4-8.2); Sodium Level 140 mmol/L (136-145); Troponin (Emerg Dept Use Only) < 0.02 ng/mL (0.0-0.045)
[2019-03-14] MEDS ORDERED: FAMOTIDINE 20 MG/2 ML VIAL IV ONE (15:33)
[2019-03-14 16:02] LABS: Urine Blood NEGATIVE (NEG); Urine Glucose NEGATIVE (NEG); Urine Protein 2+ (NEG); Urine Specific Gravity 1.015 (1.005-1.030)
[2019-03-14 16:37] LABS: Urine Bacteria 20-50 /HPF (<20); Urine Culture Reflex Order REFLEXED; Urine RBC <5 /HPF (NONE SEEN)
--- NOTE | 2019-03-14 16:43 | ER ---
Nurse's Notes [facility] Name: Verna Talbert Age: 88 yrs Sex: Female : 1930 Arrival Date: 03/14/2019 Time: 13:13 Bed 15 Private MD: Diagnosis: Anemia, unspecified;Weakness;Gastritis, unspecified;Urinary tract infection, site not specified Presentation: 03/14 13:13 Presenting complaint: EMS states: shelter called EMS for patient vomiting x1 what ss appeared to be fecal matter. EMS was concerned because shortly after picking patient up it appeared that she had a slight R sided facial droop. On arrival to ER, no facial droop is noted. Pt has no complaints at this time other than she is cold. Transition of care: patient was not received from another setting of care. Onset of symptoms was March 14, 2019. Risk Assessment: Do you want to hurt yourself or someone else? Patient reports no desire to harm self or others. Initial Sepsis Screen: Does the patient meet any 2 criteria? No. Patient's initial sepsis screen is negative. Does the patient have a suspected source of infection? No. Patient's initial sepsis screen is negative. Care prior to arrival: IV initiated. 20 GA, in the right forearm. 13:13 Method Of Arrival: EMS: [facility] ss 13:13 Acuity: NELLIE 3 ss Historical: - Allergies: 13:35 PENICILLINS; ss 13:35 Sulfa (Sulfonamide Antibiotics); ss 13:35 Alprazolam; ss 13:35 Levaquin; ss 13:35 Azithromycin; ss - PMHx: 13:35 CVA; Hypertension; ss - Immunization history:: Adult Immunizations up to date. - Social history:: Smoking status: Patient/guardian denies using tobacco. - Ebola Screening: : Patient denies exposure to infectious person Patient denies travel to an Ebola-affected area in the 21 days before illness onset. Screenin:50 Abuse screen: Denies threats or abuse. Denies injuries from another. Nutritional wh screening: No deficits noted. Tuberculosis screening: No symptoms or risk factors identified. Fall Risk None identified. Assessment: 13:51 General: Appears in no apparent distress. Behavior is calm, cooperative, appropriate wh for age. Pain: Denies pain. Neuro: Level of Consciousness is awake, alert, obeys commands, Oriented to person, place. Cardiovascular: Heart tones S1 S2. Respiratory: Airway is patent Respiratory effort is even, unlabored, Respiratory pattern is regular, symmetrical, Breath sounds are clear bilaterally. GI: Abdomen is flat, non-distended. : No signs and/or symptoms were reported regarding the genitourinary system. EENT: No signs and/or symptoms were reported regarding the EENT system. Derm: Skin is intact, is healthy with good turgor, Skin is pink, warm \T\ dry. normal. Musculoskeletal: Circulation, motion, and sensation intact. 14:39 Reassessment: Patient appears in no apparent distress at this time. No changes from previously documented assessment. Patient and/or family updated on plan of care and expected duration. Pain level reassessed. Patient is alert, oriented x 3, equal unlabored respirations, skin warm/dry/pink. 16:10 Reassessment: Patient appears in no apparent distress at this time. No changes from previously documented assessment. Patient and/or family updated on plan of care and expected duration. Pain level reassessed. Patient is alert, oriented x 3, equal unlabored respirations, skin warm/dry/pink. Sitter at bedside. 17:10 Reassessment: Patient appears in no apparent distress at this time. No changes from previously documented assessment. Patient and/or family updated on plan of care and expected duration. Pain level reassessed. Patient is alert, oriented x 3, equal unlabored respirations, skin warm/dry/pink. DC held pending transport from [facility]. 17:25 Reassessment: Spoke with Kiesha Montes [facility] report given, facilitated transport request. Per Facility it will take about an hour or so as staff is limited and they are serving dinner at the time being,notified Charge Nurse. Vital Signs: 13:35 BP 151 / 59; Pulse 67; Resp 16; Pulse Ox 98% on R/A; Pain 0/10; ss 13:35 Temp 97.6(TE); ss 14:39 BP 130 / 85; Pulse 54; Resp 16; Pulse Ox 97% ; wh 16:10 BP 87 / 60; Pulse 66; Resp 18; Pulse Ox 97% on R/A; wh 18:23 BP 151 / 58; Pulse 68; Resp 18; Pulse Ox 98% on R/A; ED Course: 13:13 Patient arrived in ED. am2 13:16 Isaiah Baca NP is PHCP. pm1 13:16 Sharath Goodman MD is Attending Physician. pm1 13:31 Amber Reyes is Primary Nurse. 13:34 Triage completed. ss 13:35 Arm band placed on right wrist. ss 13:50 Patient has correct armband on for positive identification. Placed in gown. Bed in low wh position. Call light in reach. Side rails up X 1. quality assurance monitor chassis on. Pulse ox on. NIBP on. 13:52 Maintain EMS IV. Dressing intact. Good blood return noted. Site clean \T\ dry. wh 13:53 CT Head Brain wo Cont In Process Unspecified. EDMS 13:53 CT Abd/Pelvis - IV Contrast Only In Process Unspecified. EDMS 14:06 XRAY Chest (1 view) In Process Unspecified. EDMS 15:44 Straight cath inserted, using sterile technique, 16 Fr. Specimen obtained. Returned 5 clear yellow urine. Patient tolerated well. 18:23 No provider procedures requiring assistance completed. IV discontinued, intact, wh bleeding controlled, No redness/swelling at site. Administered Medications: 15:43 Drug: Pepcid 20 mg Route: IVP; Site: right forearm; 17:01 Follow up: Response: No adverse reaction 18:10 Drug: Macrobid 100 mg Route: PO; 18:23 Follow up: Response: No adverse reaction Outcome: 16:43 Discharge ordered by . pm1 18:24 Discharged to [facility] 18:24 Condition: stable 18:24 Discharge instructions given to retirement, Instructed on discharge instructions, follow up and referral plans. medication usage, POC UTI and Gastritis Demonstrated understanding of instructions, follow-up care, POC Prescriptions given X 1. 18:25 Patient left the ED. Signatures: Dispatcher [employer] EDMS Wendy Herzog RN RN Isaiah Baca NP HAND CUTTER pm1 Stephanie Stearns mh5 Negra Overton am2 Amber Reyes Corrections: (The following items were deleted from the chart) 14:39 13:51 Neuro: Level of Consciousness is awake, alert, obeys commands, Oriented to person, place, time, 14:40 13:52 Maintain EMS IV. Dressing intact. Site clean \T\ dry. wh wh
--- NOTE | 2019-03-14 16:43 | EDPHYS ---
Physician Documentation [facility] Name: Verna Talbert Age: 88 yrs Sex: Female : 1930 Arrival Date: 03/14/2019 Time: 13:13 Bed 15 Private MD: ED Physician Sharath Goodman HPI: 03/14 13:27 This 88 yrs old Female presents to ER via EMS with complaints of General pm1 Weakness. 13:27 The patient presents to the emergency department with weakness of the entire body, pm1 generalized weakness. Onset: The symptoms/episode began/occurred today. Context: occurred at a retirement or assisted living facility. Associated signs and symptoms: Pertinent positives: vomit x 1, Pertinent negatives: abdominal pain, diarrhea, headache. The patient has been recently seen at the [facility] Emergency Department, a couple of weeks ago, for similar complaints. Patient picked up from retirement with complaint of vomiting x 1. The retirement believed it might have been fecal matter that she vomited. Patient without any complaints on arrival to ER. Historical: - Allergies: 13:35 PENICILLINS; ss 13:35 Sulfa (Sulfonamide Antibiotics); ss 13:35 Alprazolam; ss 13:35 Levaquin; ss 13:35 Azithromycin; ss - PMHx: 13:35 CVA; Hypertension; ss - Immunization history:: Adult Immunizations up to date. - Social history:: Smoking status: Patient/guardian denies using tobacco. - Ebola Screening: : Patient denies exposure to infectious person Patient denies travel to an Ebola-affected area in the 21 days before illness onset. ROS: 13:27 Eyes: Negative for injury, pain, redness, and discharge, ENT: Negative for injury, pm1 pain, and discharge. 13:27 Constitutional: Negative for fever, chills, and weight loss, Neck: Negative for injury, pain, and swelling, Cardiovascular: Negative for chest pain, palpitations, and edema, Respiratory: Negative for shortness of breath, cough, wheezing, and pleuritic chest pain. 13:27 Back: Negative for injury and pain, : Negative for injury, bleeding, discharge, and swelling, MS/Extremity: Negative for injury and deformity, Skin: Negative for injury, rash, and discoloration. 13:27 Abdomen/GI: Positive for vomiting, Negative for abdominal pain, diarrhea, constipation, hematemesis, black/tarry stool, rectal pain, rectal bleeding. 13:27 Neuro: Positive for generalized weakness. Exam: 13:27 Constitutional: This is a well developed, well nourished patient who is awake, alert, pm1 and in no acute distress. Head/Face: Normocephalic, atraumatic. Eyes: Pupils equal round and reactive to light, extra-ocular motions intact. Lids and lashes normal. Conjunctiva and sclera are non-icteric and not injected. Cornea within normal limits. Periorbital areas with no swelling, redness, or edema. ENT: Nares patent. No nasal discharge, no septal abnormalities noted. Tympanic membranes are normal and external auditory canals are clear. Oropharynx with no redness, swelling, or masses, exudates, or evidence of obstruction, uvula midline. Mucous membranes moist. Neck: Trachea midline, no thyromegaly or masses palpated, and no cervical lymphadenopathy. Supple, full range of motion without nuchal rigidity, or vertebral point tenderness. No Meningismus. Chest/axilla: Normal chest wall appearance and motion. Nontender with no deformity. No lesions are appreciated. Cardiovascular: Regular rate and rhythm with a normal S1 and S2. No gallops, murmurs, or rubs. Normal PMI, no JVD. No pulse deficits. Respiratory: Lungs have equal breath sounds bilaterally, clear to auscultation and percussion. No rales, rhonchi or wheezes noted. No increased work of breathing, no retractions or nasal flaring. Abdomen/GI: Soft, non-tender, with normal bowel sounds. No distension or tympany. No guarding or rebound. No evidence of tenderness throughout. Back: No spinal tenderness. No costovertebral tenderness. Full range of motion. Skin: Warm, dry with normal turgor. Normal color with no rashes, no lesions, and no evidence of cellulitis. MS/ Extremity: Pulses equal, no cyanosis. Neurovascular intact. Full, normal range of motion. 13:27 Neuro: Orientation: to person, Mentation: appropriate for stated age, Motor: moves all fours. Vital Signs: 13:35 BP 151 / 59; Pulse 67; Resp 16; Pulse Ox 98% on R/A; Pain 0/10; ss 13:35 Temp 97.6(TE); ss 14:39 BP 130 / 85; Pulse 54; Resp 16; Pulse Ox 97% ; wh 16:10 BP 87 / 60; Pulse 66; Resp 18; Pulse Ox 97% on R/A; wh 18:23 BP 151 / 58; Pulse 68; Resp 18; Pulse Ox 98% on R/A; wh MDM: 13:25 Patient medically screened. pm1 15:24 Data reviewed: vital signs. Data interpreted: Pulse oximetry: on room air is 97 %. pm1 Interpretation: normal. 15:24 Counseling: I had a detailed discussion with the patient and/or guardian regarding: the pm1 historical points, exam findings, and any diagnostic results supporting the discharge/admit diagnosis, lab results, radiology results. 16:42 Counseling: I had a detailed discussion with the patient and/or guardian regarding: the pm1 historical points, exam findings, and any diagnostic results supporting the discharge/admit diagnosis, lab results, the need for outpatient follow up, to return to the emergency department if symptoms worsen or persist or if there are any questions or concerns that arise at home. 03/14 13:27 Order name: Basic Metabolic Panel; Complete Time: 14:51 pm1 03/14 13:27 Order name: CBC with Diff; Complete Time: 16:51 pm1 03/14 13:27 Order name: LFT's; Complete Time: 14:51 pm1 03/14 13:27 Order name: Magnesium; Complete Time: 14:51 pm1 03/14 13:27 Order name: NT PRO-BNP; Complete Time: 14:51 pm1 03/14 13:27 Order name: PT-INR; Complete Time: 14:51 pm1 03/14 13:27 Order name: Troponin (emerg Dept Use Only); Complete Time: 14:51 pm1 03/14 13:27 Order name: XRAY Chest (1 view); Complete Time: 14:51 pm1 03/14 13:27 Order name: CT Head Brain wo Cont; Complete Time: 14:51 pm1 03/14 13:39 Order name: CT Abd/Pelvis - IV Contrast Only; Complete Time: 14:51 pm1 03/14 14:32 Order name: CBC Smear Scan; Complete Time: 16:51 EDMS 03/14 15:31 Order name: Urine Microscopic Only; Complete Time: 16:42 pm1 03/14 15:47 Order name: Urine Dipstick--Ancillary (enter results); Complete Time: 16:04 em1 03/14 16:42 Order name: Urine Culture [facility] 03/14 13:27 Order name: EKG; Complete Time: 13:28 pm1 03/14 13:27 Order name: Cardiac monitoring; Complete Time: 14:12 pm1 03/14 13:27 Order name: EKG - Nurse/Tech; Complete Time: 14:12 pm1 03/14 13:27 Order name: IV Saline Lock; Complete Time: 14:12 pm1 03/14 13:27 Order name: Labs collected and sent; Complete Time: 14:12 pm1 03/14 13:27 Order name: O2 Per Protocol; Complete Time: 14:12 pm1 03/14 13:27 Order name: O2 Sat Monitoring; Complete Time: 14:12 pm1 03/14 15:31 Order name: Urine Dipstick-Ancillary (obtain specimen); Complete Time: 15:42 pm1 Administered Medications: 15:43 Drug: Pepcid 20 mg Route: IVP; Site: right forearm; 17:01 Follow up: Response: No adverse reaction 18:10 Drug: Macrobid 100 mg Route: PO; 18:23 Follow up: Response: No adverse reaction Disposition: 18:31 Co-signature as Attending Physician, Sharath Goodman MD. rn Disposition: 03/14/19 16:43 Discharged to Home. Impression: Urinary tract infection, site not specified, Anemia, unspecified, Weakness, Gastritis, unspecified. - Condition is Stable. - Discharge Instructions: Anemia, Nonspecific, Gastritis, Adult, Urinary Tract Infection, Adult, Weakness. - Prescriptions for Macrobid 100 mg Oral Capsule - take 1 capsule by ORAL route every 12 hours for 7 days; 14 capsule. - Medication Reconciliation Form, Thank You Letter, Antibiotic Education, Prescription Opioid Use form. - Follow up: Emergency Department; When: As needed; Reason: Worsening of condition. Follow up: Private Physician; When: 2 - 3 days; Reason: Recheck today's complaints, Continuance of care, Re-evaluation by your physician. - Problem is new. - Symptoms have improved. Signatures: Dispatcher [facility] Goodman, Sharath, MD Wendy Rae rn, RN RN Isaiah Patel, TRIAGE ASSISTANT TRIAGE ASSISTANT pm1 Amber Reyes Corrections: (The following items were deleted from the chart) 18:25 16:43 03/14/2019 16:43 Discharged to Home. Impression: Urinary tract infection, site wh not specifiedAnemia, unspecified; Weakness; Gastritis, unspecified. Condition is Stable. Discharge Instructions: Anemia, Nonspecific, Gastritis, Adult, Weakness. Forms are Medication Reconciliation Form, Thank You Letter, Antibiotic Education, Prescription Opioid Use. Follow up: Emergency Department; When: As needed; Reason: Worsening of condition. Follow up: Private Physician; When: 2 - 3 days; Reason: Recheck today's complaints, Continuance of care, Re-evaluation by your physician. Problem is new. Symptoms have improved. pm1
[2019-03-14 16:49] LABS: Blood Morphology Comment NOTED (NOT SEEN); Platelet Estimate ADEQ; Poikilocytosis 1+; Urine White Blood Cell Casts OK
[2019-03-14] MEDS ORDERED: NITROFURAN MACRO 100 MG CAP PO ONE (17:06)
[2019-03-14 18:53] VITALS: TEMP 97.6
[2019-03-14 18:56] VITALS: BP 151/58; O2SAT 98
--- NOTE | 2019-03-15 06:14 | EKG ---
Test Date: 2019-03-14 Test Time: 13:38:03 Machinery Mover: KATIE MEASUREMENT RESULTS: Intervals: Rate: 60 ID: [id number] QRSD: 116 QT: 470 QTc: 470 [place]: P: 66 ID: [id number] QRS: 33 T: 227 INTERPRETIVE STATEMENTS: Sinus rhythm with 1st degree AV block LVH with secondary repolarization changes Intraventricular conduction delay Abnormal ECG Compared to ECG 02/21/2019 19:39:45 no significant change from previous ECG Electronically Signed On 03-15-19 06:13:22 [employer] by Maximino Ngo
== END 2019-03-14 18:25 | disposition home or self-care (01) ==
LOC: ER 13:12
DX: N39.0 Urinary tract infection, site not specified (principal); D64.9 Anemia, unspecified; K29.70 Gastritis, unspecified, without bleeding; I10 Essential (primary) hypertension; Z88.0 Allergy status to penicillin; Z88.2 Allergy status to sulfonamides; Z88.3 Allergy status to other anti-infective agents
CPT/HCPCS: 93005; 87088; 85025; 80048; 36415; 83735; 85610; 80076; 84484; 83880; 70450; 74177; 71045; 51702; 96374; 99284; Q9967; 81003; 81015; 87086

== ENCOUNTER 2019-03-21 18:10 | Emergency (ER) | payer OTHER ==
--- OUTSIDE RECORDS SUMMARY | 2019-03-21 18:12 | XMS REPORT ---
:1930 [facility] Address [address] [place] [address] Care Team Providers Name Role Phone SMILEY VARELA Unavailable Unavailable Problems This patient has no known problems. Allergies, Adverse Reactions, Alerts Allergy Name Allergy Status Severity Reaction(s) Onset Inactive Treating Comments Type Date Date Clinician penicillin G DA Active SV 2017-01 00:00:0 0 Medications This patient has no known medications. Procedures and Interventions Procedure Date / Time Performed Performing Clinician [id number] 2019-01-07 00:00:00 0HBRXZZ 2019-01-07 00:00:00 0HBRXZZ 2019-01-07 [...] varyby method. CBC W/PLT COUNT & AUTO [id number] 11:50:00 Test Item Value Reference Range Comments WHITE BLOOD CELL COUNT (BEAKER) (test pmsy=524) 8.6 K/ L 3.5-10.5 RED BLOOD CELL COUNT (BEAKER) (test kwbr=429) 3.62 M/ L 3.93-5.22 HEMOGLOBIN (BEAKER) (test coos=334) 11.5 GM/DL 11.2-15.7 HEMATOCRIT (BEAKER) (test ftwo=864) 34.9 % 34.1-44.9 MEAN CORPUSCULAR VOLUME (BEAKER) (test bdia=552) 96.4 fL 79.4-94.8 MEAN CORPUSCULAR HEMOGLOBIN (BEAKER) (test 31.8 pg 25.6-32.2 aygy=883) MEAN CORPUSCULAR HEMOGLOBIN CONC (BEAKER) (test 33.0 GM/DL 32.2-35.5 tblv=708) RED CELL DISTRIBUTION WIDTH (BEAKER) (test 13.2 % 11.7-14.4 lmhg=213) PLATELET COUNT (BEAKER) (test hnqh=471) 199 K/CU MM 150-450 MEAN PLATELET VOLUME (BEAKER) (test nbbo=297) 9.9 fL 9.4-12.3 NUCLEATED RED BLOOD CELLS (BEAKER) (test 0 /100 WBC 0-0 xqeo=793) (CELLAVISION MANUAL DIFF)2018-12-22 11:50:00 Test Item Value Reference Range Comments NEUTROPHILS - REL (CELLAVISION)(BEAKER) (test 63 % gqtq=3310) LYMPHOCYTES - REL (CELLAVISION)(BEAKER) (test 17 % mdhd=8403) MONOCYTES - REL (CELLAVISION)(BEAKER) (test 14 % xhlj=5697) EOSINOPHILS - REL (CELLAVISION)(BEAKER) (test 3 % zyos=2683) PROMYELOCYTES - REL (CELLAVSION)(BEAKER) (test 1 % 0-0 lzxd=1584) BANDS - REL (CELLAVISION)(BEAKER) (test iqdx=8526) 1 % 0-10 ATYPICAL LYMPHOCYTES - REL (CELLAVISION)(BEAKER) 1 % 0-0 (test fdyo=6352) NEUTROPHILS - ABS (CELLAVISION)(BEAKER) (test 5.42 K/ul 1.56-6.13 pbsv=8031) LYMPHOCYTES - ABS (CELLAVISION)(BEAKER) (test 1.46 K/ul 1.18-3.74 fojg=0280) MONOCYTES - ABS (CELLAVISION)(BEAKER) (test 1.20 K/uL 0.24-0.36 kmmq=7822) EOSINOPHILS - ABS (CELLAVISION)(BEAKER) (test 0.26 K/uL 0.04-0.36 ohaj=4319) PROMYELOCYTES - ABS (CELLAVISION)(BEAKER) (test 0.09 K/uL 0.00-0.00 lzuj=5115) BANDS - ABS (CELLAVISION)(BEAKER) (test bfng=3632) 0.09 K/uL 0.00-0.80 ATYPICAL LYMPHOCYTES - ABS (CELLAVISION)(BEAKER) 0.09 K/uL 0.00-0.00 (test oqea=4639) TOTAL COUNTED (BEAKER) (test wapg=7738) 100 RBC MORPHOLOGY (BEAKER) (test eati=968) Normal WBC MORPHOLOGY (BEAKER) (test lzxw=495) Normal PLT MORPHOLOGY (BEAKER) (test ffsf=439) Normal ARTIFACT (CELLAVISION)(BEAKER) (test kfvw=1426) Present PLATELET CONCENTRATION (CELLAVISION)(BEAKER) (test Adequate sdoy=6209) Received comment: User comments: Slide comments:BASIC METABOLIC [id number] 05:52:00 Test Item Value Reference Range Comments SODIUM (BEAKER) (test 142 meq/L 136-145 wdks=073) POTASSIUM (BEAKER) (test 3.8 meq/L 3.5-5.1 Specimen slightly rjap=111) hemolyzed CHLORIDE (BEAKER) (test 107 meq/L 98-107 yejy=721) CO2 (BEAKER) (test 25 meq/L 22-29 njpr=748) BLOOD UREA NITROGEN 29 mg/dL 7-21 (BEAKER) (test yktv=325) CREATININE (BEAKER) (test 1.57 mg/dL 0.57-1.25 Specimen slightly jkql=209) hemolyzed GLUCOSE RANDOM (BEAKER) 109 mg/dL 70-105 (test kten=917) CALCIUM (BEAKER) (test 9.7 mg/dL 8.4-10.2 duwh=559) EGFR (BEAKER) (test 31 mL/min/1.73 sq m ESTIMATED GFR IS NOT ginz=1384) ACCURATE CREATININE CLEARANCE IN PREDICTING GLOMERULAR FILTRATION RATE. ESTIMATED GFR IS NOT APPLICABLE FOR DIALYSIS PATIENTS. TROPONIN [id number] 06:35:00 Test Item Value Reference Range Comments TROPONIN I (BEAKER) (test bsyg=802) 0.02 ng/mL 0.00-0.03 Troponin I (TnI) levels [...] acute neurological disease, and persistent tachyarrhythmia.BASIC METABOLIC [id number] 09:18:00 Test Item Value Reference Range Comments SODIUM (BEAKER) (test 140 meq/L 136-145 enub=705) POTASSIUM (BEAKER) (test 4.5 meq/L 3.5-5.1 ppzx=950) CHLORIDE (BEAKER) (test 108 meq/L 98-107 tnfy=078) CO2 (BEAKER) (test fimi=502) 23 meq/L 22-29 BLOOD UREA NITROGEN (BEAKER) 36 mg/dL 7-21 (test gskb=668) CREATININE (BEAKER) (test 1.65 mg/dL 0.57-1.25 kahr=252) GLUCOSE RANDOM (BEAKER) 102 mg/dL 70-105 (test vouf=999) CALCIUM (BEAKER) (test 9.4 mg/dL 8.4-10.2 qjhu=972) EGFR (BEAKER) (test INSUFFICIENT CLINICAL DATA TO akmb=4971) CALCULATE ESTIMATED GFR. HEMOGLOBIN [id number] 08:56:00 Test Item Value Reference Range Comments HEMOGLOBIN A1C (BEAKER) (test ylvn=855) 5.7 % 4.3-6.1 TROPONIN [id number] 08:29:00 Test Item Value Reference Range Comments TROPONIN I (BEAKER) (test ofzn=961) 0.04 ng/mL 0.00-0.03 Troponin I (TnI) levels [...] acidosis, acute neurological disease, and persistent tachyarrhythmia.POCT-GLUCOSE [id number] 05:12:00 Test Item Value Reference Range Comments POC-GLUCOSE METER (LYNETTE) 111 mg/dL 70-110 TESTED AT [facility] [address] (test hwzh=5802) [facility] [address] HEPARIN ASSAY - LOW MOLECULAR [id number] 03:28:00 Test Item Value Reference Range Comments LOVENOX-ANTI 10A (LYNETTE) (test etgv=1427) > u/ml 0.60-2.00 Anti-Factor 10-A Level (Heparin Assay for Low Molecular Weight Heparin) Monitoring Guidelines: Blood samples should be obtained 4 hours post subcutaneous injection (time of Peak level) Therapeutic Peak Levels: 0.6-1.0 units/mL twice daily enoxaparin 1.0-2.0 units/mL once daily enoxaparinRef: CHEST 2012;141:[id number] 01:36:00 Test Item Value Reference Range Comments TROPONIN I (LYNETTE) (test faqh=827) 0.03 ng/mL 0.00-0.03 Troponin I (TnI) levels [...] neurological disease, and persistent tachyarrhythmia.MR, BRAIN, WITHOUT [id number] 00 :29:00Reason for exam:->Ischemic Stroke EvaluationFINAL REPORT [...] at approximately 12:29 AM 12/19/2018. Signed: Rosita Yepezeport Verified Date/Time: 12/19/2018 00:29:42 LIPID [id number] 22:50:00 Test Item Value Reference Range Comments TRIGLYCERIDES (BEAKER) (test ktbe=003) 233 mg/dL CHOLESTEROL (BEAKER) (test wnko=549) 210 mg/dL HDL CHOLESTEROL (BEAKER) (test mybl=248) 36 mg/dL LDL CHOLESTEROL CALCULATED (BEAKER) (test 127 mg/dL tkzy=594) Triglyceride Reference Range: Low Risk <150 Borderline 150- 199 High Risk 200-499 Very High Risk >=500Cholesterol Reference Range: Low Risk <200 Borderline 200-239 High Risk > 240HDL Cholesterol Reference Range: Low Risk >=60 High Risk <40LDL Cholesterol Reference Range: Optimal <100 Near Optimal 100-129 Borderline 130-159 High 160-189 Very High >=190TSH/FREE T4 IF [id number] 22:16:00 Test Item Value Reference Range Comments THYROID STIMULATING HORMONE (BEAKER) (test 1.75 uIU/mL 0.35-4.94 tfft=997) VITAMIN B12 AND [id number] 22:16:00 Test Item Value Reference Range Comments VITAMIN B12 (BEAKER) (test fhqj=385) 1068 pg/mL 213-816 FOLATE (BEAKER) (test gkxp=156) > ng/mL >=7.0 B-TYPE NATRIURETIC FACTOR (BNP)2018-12-18 19:07:00 Test Item Value Reference Range Comments B-TYPE NATRIURETIC PEPTIDE (BEAKER) (test 162 pg/mL 0-100 qepf=399) TROPONIN [id number] 19:06:00 Test Item Value Reference Range Comments TROPONIN I (BEAKER) (test kqcj=937) 0.01 ng/mL 0.00-0.03 Troponin I (TnI) levels [...] acute neurological disease, and persistent tachyarrhythmia.BASIC METABOLIC [id number] 19:04:00 Test Item Value Reference Range Comments SODIUM (BEAKER) (test 137 meq/L 136-145 jvef=965) POTASSIUM (BEAKER) (test 4.2 meq/L 3.5-5.1 yzwf=189) CHLORIDE (BEAKER) (test 104 meq/L 98-107 dple=063) CO2 (BEAKER) (test ihoj=915) 25 meq/L 22-29 BLOOD UREA NITROGEN (BEAKER) 46 mg/dL 7-21 (test zwzi=547) CREATININE (BEAKER) (test 1.85 mg/dL 0.57-1.25 yumt=726) GLUCOSE RANDOM (BEAKER) 106 mg/dL 70-105 (test jnew=226) CALCIUM (BEAKER) (test 9.9 mg/dL 8.4-10.2 yfny=660) EGFR (BEAKER) (test INSUFFICIENT CLINICAL DATA TO yhcw=6268) CALCULATE ESTIMATED GFR. [id number] 18:59:00 Test Item Value Reference Range Comments MAGNESIUM (BEAKER) (test ylav=965) 1.9 mg/dL 1.6-2.6 CREATINE KINASE (CK)2018-12-18 18:59:00 Test Item Value Reference Range Comments CREATINE KINASE TOTAL (BEAKER) (test vtkm=835) 199 U/L 29-200 URINALYSIS W/ [id number] 18:55:00 Test Item Value Reference Range Comments COLOR (BEAKER) (test knal=712) Yellow CLARITY (BEAKER) (test uzgr=068) Clear SPECIFIC GRAVITY UA (BEAKER) (test itpb=641) 1.021 1.001-1.035 PH UA (BEAKER) (test vldc=372) 7.0 5.0-8.0 PROTEIN UA (BEAKER) (test pbqu=434) 20 mg/dL Negative GLUCOSE UA (BEAKER) (test kpmn=718) Negative Negative KETONES UA (BEAKER) (test lwos=226) Negative Negative BILIRUBIN UA (BEAKER) (test kvoc=743) Negative Negative BLOOD UA (BEAKER) (test auuc=109) Negative Negative NITRITE UA (BEAKER) (test ddrd=430) Negative Negative LEUKOCYTE ESTERASE UA (BEAKER) (test vkdl=861) Negative Negative UROBILINOGEN UA (BEAKER) (test yxqj=931) 0.2 mg/dL 0.2-1.0 RBC UA (BEAKER) (test esha=752) 0 /HPF WBC UA (BEAKER) (test hzrm=821) < /HPF SQUAMOUS EPITHELIAL (BEAKER) (test yxrf=592) < /HPF SOURCE(BEAKER) (test nmvo=6389) CT, CAROTID, [id number] 18:51:00Reason for exam:->GENERALIZED WEAKNESS, NOT ASSOCIATED WITH [...] moderate stenoses of the bilateral ACAs. Bilateral mixer helper are predominantly supplied by [employer]. The major [...] of multiple sub-6 mm nodules. Signed: Renetta Alvarezflores Verified Date/Time: 12/18/2018 18:51:19 [facility], CT[facility] [id number] 18:51:00FINAL REPORT CT, CTANGIO BRAIN, CT, [...] moderate stenoses of the bilateral ACAs. Bilateral mixer helper are predominantly supplied by [employer]. The major [...] Verified Date/Time: 12/18/2018 18:51:19 CT, CEREBRAL PERFUSION [id number] 18:51:00FINAL REPORT CT, CTANGIO BRAIN, CT, [...] moderate stenoses of the bilateral ACAs. Bilateral mixer helper are predominantly supplied by [employer]. The major [...] multiple sub-6 mm nodules. Signed: Renetta Alvarez Verified Date/Time: 12/18/2018 18:51:19 PT/[id number] 18:47:00 Test Item Value Reference Range Comments PROTIME (BEAKER) (test jxtr=516) 17.0 seconds 11.9-14.2 INR (BEAKER) (test tuuj=858) 1.5 <=5.9 PARTIAL THROMBOPLASTIN TIME (BEAKER) (test 33.2 seconds 22.5-36.0 xeoe=884) Effective 09/10/2018: PT Reference Range ChangeNew: 11.9-14.2 Previous: 11.7- 14.7RECOMMENDED COUMADIN/WARFARIN INR THERAPY RANGESSTANDARD DOSE: 2.0-3.0 Includes: PROPHYLAXIS for venous thrombosis, systemic embolization; TREATMENT for venous thrombosis and/or pulmonary embolus.HIGH RISK: Target INR is2.5-3.5 for patients wiht mechanical heart valves.CBC W/PLT COUNT & AUTO [id number] 18:41:00 Test Item Value Reference Range Comments WHITE BLOOD CELL COUNT (BEAKER) (test bmwu=540) 9.8 K/ L 3.5-10.5 RED BLOOD CELL COUNT (BEAKER) (test fcjt=085) 3.15 M/ L 3.93-5.22 HEMOGLOBIN (BEAKER) (test jwof=714) 10.3 GM/DL 11.2-15.7 HEMATOCRIT (BEAKER) (test lygr=116) 30.7 % 34.1-44.9 MEAN CORPUSCULAR VOLUME (BEAKER) (test oojj=877) 97.5 fL 79.4-94.8 MEAN CORPUSCULAR HEMOGLOBIN (BEAKER) (test 32.7 pg 25.6-32.2 fchj=452) MEAN CORPUSCULAR HEMOGLOBIN CONC (BEAKER) (test 33.6 GM/DL 32.2-35.5 awut=233) RED CELL DISTRIBUTION WIDTH (BEAKER) (test 13.2 % 11.7-14.4 lrep=406) PLATELET COUNT (BEAKER) (test zuun=370) 201 K/CU MM 150-450 MEAN PLATELET VOLUME (BEAKER) (test uvvj=212) 9.8 fL 9.4-12.3 NUCLEATED RED BLOOD CELLS (BEAKER) (test 0 /100 WBC 0-0 efom=999) NEUTROPHILS RELATIVE PERCENT (BEAKER) (test 78 % dxkb=944) LYMPHOCYTES RELATIVE PERCENT (BEAKER) (test 9 % zcqr=141) MONOCYTES RELATIVE PERCENT (BEAKER) (test 11 % uzwe=672) EOSINOPHILS RELATIVE PERCENT (BEAKER) (test 1 % tskl=451) BASOPHILS RELATIVE PERCENT (BEAKER) (test 0 % gtbp=392) NEUTROPHILS ABSOLUTE COUNT (BEAKER) (test 7.64 K/ L 1.56-6.13 wjju=927) LYMPHOCYTES ABSOLUTE COUNT (BEAKER) (test 0.91 K/ L 1.18-3.74 xpck=722) MONOCYTES ABSOLUTE COUNT (BEAKER) (test 1.09 K/ L 0.24-0.36 jhxj=215) EOSINOPHILS ABSOLUTE COUNT (BEAKER) (test 0.12 K/ L 0.04-0.36 oaxm=299) BASOPHILS ABSOLUTE COUNT (BEAKER) (test 0.04 K/ L 0.01-0.08 vobt=174) IMMATURE GRANULOCYTES-RELATIVE PERCENT (BEAKER) 0 % 0-1 (test gzij=1025) CT, BRAIN/STROKE [id number] 18:04:00Reason for exam:->strokeWhat is the patient's sedation [...] These findings were relayed to Dr. SMILEY VARELA on 12/18/2018 6:04 PM. Signed: Renetta Alvarez Verified Date/Time: 12/18/2018 18:04:29
[2019-03-21] MEDS ORDERED: NA CHLORIDE 0.9% 500 ML ONE (18:57)
[2019-03-21 18:59] LABS: Absolute Lymphocytes (CBC) 0.8 K/uL (0.7-4.9); Basophils % 0.6 % (0-1.3); Hematocrit 31.6 % (36.0-45.0); Lymphocytes % 12.1 % (15.3-44.8); MPV 8.6 fL (7.6-11.3); RBC Red Blood Cell Count 3.46 M/uL (3.86-4.86)
[2019-03-21 19:12] LABS: Potassium 3.8 mmol/L (3.5-5.1)
[2019-03-21 19:14] LABS: Protime INR 1.1
--- NOTE | 2019-03-21 19:55 | RAD REPORT ---
EXAM DESCRIPTION: RAD - Ankle Right 3 View - 03/21/2019 7:41 pm CLINICAL HISTORY: Right ankle pain status post fall FINDINGS: No fracture or dislocation is seen. Soft tissue swelling is present
--- NOTE | 2019-03-21 20:10 | RAD REPORT ---
EXAM DESCRIPTION: CT - Head C Spine Cap Wo Con - 03/21/2019 7:56 pm TECHNIQUE: Computed axial tomography of the head and cervical spine was obtained. Coronal and sagitt al reconstruction was performed Computed axial tomography of the chest, abdomen and pelvis was obtained. Contrast was not requested. All CT scans are performed using dose optimization technique as appropriate and may include automated exposure control or mA/KV adjustment according to patient size. CLINICAL HISTORY: Head and neck injury with chest and abdominal pain status post fall COMPARISON: CT February 2019 FINDINGS: Scalp swelling. An underlying skull fracture is not noted. Low-density within the left basal ganglia consistent with old lacunar infarction. Moderate low-densit y within periventricular, deep and subcortical white matter likely ischemic changes secondary to smal l vessel disease. 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 An intracranial bleed is not seen. The ventricles are normal in caliber. An extra-axial fluid collection is not noted. . Fluid within the sinuses/mastoids is not seen. A cervical fracture is not seen. No dislocation is noted. The evaluation of mediastinum, alonzo, vessels, solid organs and bowel is limited secondary to the lack of contrast administration. A mediastinal hematoma is not noted. A pleural effusion is not seen. A lung contusion is not present. A small pericardial effusion is unchanged The liver,spleen, pancreas, adrenals,kidneys and bladder do not demonstrate a traumatic injury Stranding within the subcutaneous tissues of the right flank have progressed since the prior exam and may indicate inflammation. IMPRESSION: 1. No acute intracranial abnormality is seen. 2. A cervical fracture is not visualized. If the patient continues have symptoms to suggest intracran ial/spinal cord pathology MRI be recommended 3. No traumatic abnormality involving the chest/abdomen/pelvis.
--- NOTE | 2019-03-21 22:53 | ER ---
Nurse's Notes [facility] Name: Verna Talbert Age: 88 yrs Sex: Female : 1930 Arrival Date: 03/21/2019 Time: 18:13 Bed 13 Private MD: Diagnosis: Fall From Standing Presentation: 03/21 18:18 Presenting complaint: EMS states: PT Reverjessica Johnson, nurses reported pt fell 3x today. em The last fall she was found sitting on the floor beside a recliner. They reported pt refused to stay in one place today. Pt is with Dementia. LOC UNKNOWN. Pt on aspirin tab once daily. PT was here few days ago for bowel obstruction. group home reports pt has been vomiting fecal material today. No other information given since they said, "they only work on weekends". Pt has a laceration on the R forehead, yellowish bruise on the R knee, dark purple circumferential bruise on the R ankle. Transition of care: patient was received from another setting of care (long-term care facility), [facility]. Onset of symptoms was March 21, 2019. Risk Assessment: Do you want to hurt yourself or someone else? Patient reports no desire to harm self or others. Care prior to arrival: IV initiated. 20 GA, in the left forearm. 18:18 Method Of Arrival: EMS: [facility] em 18:18 Acuity: NELLIE 2 em 18:32 Initial Sepsis Screen: Does the patient meet any 2 criteria? No. Patient's initial ca1 sepsis screen is negative. Does the patient have a suspected source of infection? No. Patient's initial sepsis screen is negative. Historical: - Allergies: 19:16 Alprazolam; ca1 19:16 Azithromycin; ca1 19:16 Levaquin; ca1 19:16 PENICILLINS; ca1 19:16 Sulfa (Sulfonamide Antibiotics); ca1 - Home Meds: 20:13 aspirin 81 mg Oral chew 1 tab once daily [Active]; carvedilol 6.25 mg oral tab 1 tab 2 ca1 times per day [Active]; Docusate 100 mg 1 tab daily [Active]; ferrous sulfate 325 mg (65 mg iron) Oral tab twice a day [Active]; furosemide 20 mg Oral tab 1 tab once daily [Active]; levothyroxine 50 mcg tab 1 tab once daily [Active]; losartan 25 mg oral tab 1 tab once daily [Active]; magnesium oxide 400 mg Oral tab daily [Active]; melatonin 3 mg Oral tab nightly [Active]; nitrofurantoin macrocrystal 100 mg Oral cap 1 cap twice a day [Active]; pantoprazole 40 mg oral TbEC 1 tab once daily [Active]; potassium chloride 10 mEq Oral cpER 1 cap once daily [Active]; quetiapine 25 mg oral tab 1 tab nightly [Active]; senna 8.6 mg oral cap 1 tab once daily [Active]; sertraline 75 mg oral tab 3 tabs daily [Active]; tramadol 50 mg Oral tab .5 tab every 4 hours [Active]; - PMHx: 19:16 CVA; Hypertension; ca1 - Immunization history:: Adult Immunizations up to date, Last tetanus immunization: unknown. - Social history:: Smoking status: Patient/guardian denies using tobacco. - Ebola Screening: : Patient negative for fever greater than or equal to 101.5 degrees Fahrenheit, and additional compatible Ebola Virus Disease symptoms Patient denies exposure to infectious person Patient denies travel to an Ebola-affected area in the 21 days before illness onset No symptoms or risks identified at this time. Screenin:20 Nutritional screening: No deficits noted. Tuberculosis screening: No symptoms or risk ca1 factors identified. Fall Risk Fall in past 12 months (25 points). Secondary diagnosis (15 points) dementia, IV access (20 points). Total Anton Fall Scale indicates High Risk Score (45 or more points). Fall prevention measures have been instituted. Side Rails Up X 2 Frequent Obs/Assessments Occuring Family Present and informed to notify staff if the need to leave the bedside. 18:20 Abuse screen: Denies threats or abuse. Denies injuries from another. ca1 Primary Survey: 19:10 NO uncontrolled hemorrhage observed. A: The patient is alert. Airway: patent, No jb4 supplemental oxygen in use on arrival. Oral cavity: clear. Breathing/Chest: Respiratory pattern: regular, Respiratory effort: spontaneous, unlabored, Breath sounds: clear, bilaterally. Chest inspection: symmetrical rise and fall of the chest. Circulation: Skin color: pink, Skin temperature: warm, dry. Disability Alert. Exposure/Environment: All clothing and personal items were removed. Forensic evidence collection is not deemed to be indicated at this time. Items placed in patient belonging bag. There is no evidence of uncontrolled external bleeding. A warming method has been applied: A warm blanket has been provided to the patient. 20:30 Reassessment Airway Airway Patent Oxygen No O2 Oral cavity Clear Breathing/Chest jb4 Respiratory pattern Regular Respiratory effort Spontaneous Unlabored Breath sounds Clear Circulation Color Globe Temperature Warm Dry Disability Alert. Secondary Survey: 19:10 HEENT: Head Other Laceration noted to the right of the forehead. Face No jb4 injury/deformity Eyes: No injury or deformity noted. Ears: clear Nose: clear Throat: No injury or deformity noted. Gastrointestinal: No deficits noted. : No signs and/or symptoms were reported regarding the genitourinary system. Musculoskeletal: No signs and/or symptoms reported regarding the musculoskeletal system. Injury Description: Bruise sustained to right knee and anterior aspect of right ankle is red, green, purple, yellow, Laceration sustained to forehead. Assessment: 18:20 General: Appears in no apparent distress. uncomfortable, Behavior is crying. Pain: ca1 Complains of pain in forehead, R ankle. Neuro: Level of Consciousness is awake, alert, confused, Oriented to person, place. Cardiovascular: Heart tones S1 S2 present Capillary refill < 3 seconds Patient's skin is warm and dry. Edema is 1+ to left ankle, left foot, left toes, right ankle, right foot and right toes. Respiratory: Airway is patent Respiratory effort is even, unlabored, Respiratory pattern is regular, symmetrical, Breath sounds are clear bilaterally. GI: Abdomen is round non-distended, brownish material on mouth and chin noted Bowel sounds present X 4 quads. Abd is soft and non tender X 4 quads. : No deficits noted. No signs and/or symptoms were reported regarding the genitourinary system. EENT: No deficits noted. No signs and/or symptoms were reported regarding the EENT system. Derm: Skin is intact, is healthy with good turgor, Skin is pink, warm \\T\\ dry. Bruising that is dark purple, on R ankle. Musculoskeletal: Circulation, motion, and sensation intact. Capillary refill < 3 seconds. 19:10 Reassessment: Patient appears in no apparent distress at this time. Patient and/or jb4 family updated on plan of care and expected duration. Pain level reassessed. Patient is alert, oriented x 3, equal unlabored respirations, skin warm/dry/pink. 19:24 Reassessment: Report given to MADDY Holguin. ca1 20:30 Reassessment: Patient appears in no apparent distress at this time. Patient and/or jb4 family updated on plan of care and expected duration. Pain level reassessed. Patient is alert, oriented x 3, equal unlabored respirations, skin warm/dry/pink. 21:07 Reassessment: Patient appears in no apparent distress at this time. Patient and/or jb4 family updated on plan of care and expected duration. Pain level reassessed. Patient is alert, oriented x 3, equal unlabored respirations, skin warm/dry/pink. 22:15 Reassessment: Patient appears in no apparent distress at this time. Patient and/or jb4 family updated on plan of care and expected duration. Pain level reassessed. Patient is alert, oriented x 3, equal unlabored respirations, skin warm/dry/pink. PT has brake repairer hydraulic at the bedside. Pt tolerated PO challenge well with no vomiting or choking. 23:35 Reassessment: Patient appears in no apparent distress at this time. Patient and/or jb4 family updated on plan of care and expected duration. Pain level reassessed. Patient is alert, oriented x 3, equal unlabored respirations, skin warm/dry/pink. PT d/c home with daycare teacher via wheelchair. Vital Signs: 18:32 BP 141 / 114; Pulse 95; Resp 16 S; Pulse Ox 97% on R/A; Weight 56.7 kg (R); Height 5 ca1 ft. 2 in. (157.48 cm) (R); 19:15 BP 184 / 75; Pulse 63; Resp 16; Pulse Ox 97% on R/A; jb4 20:15 BP 159 / 58; Pulse 63; Resp 18; Pulse Ox 97% on R/A; jb4 21:15 BP 182 / 69; Pulse 62; Resp 16; Temp 98.3(TE); Pulse Ox 98% on R/A; jb4 22:30 BP 170 / 71; Pulse 65; Resp 18; Pulse Ox 99% on R/A; jb4 23:00 BP 158 / 65; Pulse 61; Resp 18; Pulse Ox 97% on R/A; jb4 18:32 Body Mass Index 22.86 (56.70 kg, 157.48 cm) ca1 Maurilio Coma Score: 19:15 Eye Response: spontaneous(4). Verbal Response: oriented(5). Motor Response: obeys jb4 commands(6). Total: 15. 20:15 Eye Response: spontaneous(4). Verbal Response: oriented(5). Motor Response: obeys jb4 commands(6). Total: 15. 21:15 Eye Response: spontaneous(4). Verbal Response: oriented(5). Motor Response: obeys jb4 commands(6). Total: 15. 22:30 Eye Response: spontaneous(4). Verbal Response: oriented(5). Motor Response: obeys jb4 commands(6). Total: 15. 23:00 Eye Response: spontaneous(4). Verbal Response: oriented(5). Motor Response: obeys jb4 commands(6). Total: 15. Trauma Score (Adult): 19:15 Eye Response: spontaneous(1); Verbal Response: oriented(1); Motor Response: obeys jb4 commands(2); Systolic BP: > 89 mm Hg(4); Respiratory Rate: 10 to 29 per min(4); Logan Score: 15; Trauma Score: 12 20:15 Eye Response: spontaneous(1); Verbal Response: oriented(1); Motor Response: obeys jb4 commands(2); Systolic BP: > 89 mm Hg(4); Respiratory Rate: 10 to 29 per min(4); Maurilio Score: 15; Trauma Score: 12 21:15 Eye Response: spontaneous(1); Verbal Response: oriented(1); Motor Response: obeys jb4 commands(2); Systolic BP: > 89 mm Hg(4); Respiratory Rate: 10 to 29 per min(4); Maurilio Score: 15; Trauma Score: 12 22:30 Eye Response: spontaneous(1); Verbal Response: oriented(1); Motor Response: obeys jb4 commands(2); Systolic BP: > 89 mm Hg(4); Respiratory Rate: 10 to 29 per min(4); Maurilio Score: 15; Trauma Score: 12 23:00 Eye Response: spontaneous(1); Verbal Response: oriented(1); Motor Response: obeys jb4 commands(2); Systolic BP: > 89 mm Hg(4); Respiratory Rate: 10 to 29 per min(4); Maruilio Score: 15; Trauma Score: 12 ED Course: 18:13 Patient arrived in ED. iw 18:18 Devon Carlton LVN is Primary Nurse. em 18:20 Arm band placed on right wrist. ca1 18:24 Triage completed. em 18:25 Montez Shrestha FNP-C [facility]. la1 18:25 Geovani Gerardo MD is Attending Physician. la1 18:25 Patient has correct armband on for positive identification. Placed in gown. Bed in low ca1 position. Call light in reach. Side rails up X2. turfgrass management professor on. Pulse ox on. NIBP on. Warm blanket given. 18:32 Kerry Steinberg, RN is Primary Nurse. ca1 18:44 No provider procedures requiring assistance completed. Inserted saline lock: 20 gauge ca1 in right antecubital area, using aseptic technique. Blood collected. 18:44 Initial lab(s) drawn, by me, sent to lab. ca1 19:00 Patient maintains SpO2 saturation greater than 95% on room air. Thermoregulation: warm jb4 blanket given to patient. 19:37 Navneet Slater, RN is Primary Nurse. jb4 19:49 Ankle Right 3 View In Process Unspecified. EDMS 19:57 Head C Spine Cap Wo Con In Process Unspecified. EDMS 23:35 IV discontinued, intact, bleeding controlled, No redness/swelling at site. Pressure jb4 dressing applied. Administered Medications: 19:00 Drug: NS 0.9% 500 ml Route: IV; Rate: bolus; Site: left forearm; ca1 23:46 Follow up: Response: No adverse reaction jb4 Output: 23:35 Urine: 0ml; Total: 0ml. jb4 Outcome: 22:52 Discharge ordered by . la1 23:35 Discharged to home via wheelchair, with daycare teacher jb4 23:35 Condition: stable 23:35 Discharge instructions given to patient, brake repairer hydraulic, Instructed on discharge instructions, follow up and referral plans. Demonstrated understanding of instructions, follow-up care. 23:35 Patient's length of stay in the Emergency Department was greater than 2 hours. PT jb4 d/c'ed homePatient's length of stay extended due to 23:46 Patient left the ED. ar5 Signatures: Dispatcher [employer] EDMS Devon Carlton LVN LVN em Wendy Nicole, RN RN iw Montez Shrestha, INSPECTOR SCALES-C INSPECTOR SCALES-Cla1 Navneet Slater, RN RN jb4 Adeola Ty ar5 Kerry Steinberg, MADDY RN ca1 Corrections: (The following items were deleted from the chart) :18 19:16 Nutritional screening: No deficits noted. ca1 ca1 19:18 19:16 Tuberculosis screening: No symptoms or risk factors identified. ca1 ca1 :18 19:16 Fall Risk Fall in past 12 months (25 points). Secondary diagnosis (15 points) ca1 dementia, IV access (20 points). Total Anton Fall Scale indicates High Risk Score (45 or more points). Fall prevention measures have been instituted. Side Rails Up X 2 Frequent Obs/Assessments Occuring Family Present and informed to notify staff if the need to leave the bedside ca1 03/22 02:27 12 23:35 Reassessment: Patient appears in no apparent distress at this time. Patient jb4 and/or family updated on plan of care and expected duration. Pain level reassessed. Patient is alert, oriented x 3, equal unlabored respirations, skin warm/dry/pink. jb4
--- NOTE | 2019-03-21 22:53 | EDPHYS ---
Physician Documentation [facility] Name: Verna Talbert Age: 88 yrs Sex: Female : 1930 Arrival Date: 03/21/2019 Time: 18:13 Bed 13 Private MD: ED Physician Geovani Gerardo HPI: 03/21 18:35 This 88 yrs old Female presents to ER via EMS with complaints of fall injury. la1 18:35 Trauma demographics: Location of Injury: The injury occurred at a [place] [facility]. la1 Mechanism of injury: Fall: the patient fell unknown. Associated injuries: The patient sustained injury to the head, laceration, 3 cm(s), of the forehead, left lateral ankle, left Achilles, left medial ankle and anterior aspect of left ankle, contusion, ecchymosis, hematoma, swelling. Onset: The symptoms/episode began/occurred today. Unable to obtain HPI due to baseline dementia. pt stays at [facility] and she had three reported unwitnessed falls today. Unknown LOC, Pt alert, oriented x1 now and at baseline. EMS reports patient was vomiting what appeared to be fecal matter or coffee ground emesis. Bruising and swelling present to left ankle. Historical: - Allergies: 19:16 Alprazolam; ca1 19:16 Azithromycin; ca1 19:16 Levaquin; ca1 19:16 PENICILLINS; ca1 19:16 Sulfa (Sulfonamide Antibiotics); ca1 - Home Meds: 20:13 aspirin 81 mg Oral chew 1 tab once daily [Active]; carvedilol 6.25 mg oral tab 1 tab 2 ca1 times per day [Active]; Docusate 100 mg 1 tab daily [Active]; ferrous sulfate 325 mg (65 mg iron) Oral tab twice a day [Active]; furosemide 20 mg Oral tab 1 tab once daily [Active]; levothyroxine 50 mcg tab 1 tab once daily [Active]; losartan 25 mg oral tab 1 tab once daily [Active]; magnesium oxide 400 mg Oral tab daily [Active]; melatonin 3 mg Oral tab nightly [Active]; nitrofurantoin macrocrystal 100 mg Oral cap 1 cap twice a day [Active]; pantoprazole 40 mg oral TbEC 1 tab once daily [Active]; potassium chloride 10 mEq Oral cpER 1 cap once daily [Active]; quetiapine 25 mg oral tab 1 tab nightly [Active]; senna 8.6 mg oral cap 1 tab once daily [Active]; sertraline 75 mg oral tab 3 tabs daily [Active]; tramadol 50 mg Oral tab .5 tab every 4 hours [Active]; - PMHx: 19:16 CVA; Hypertension; ca1 - Immunization history:: Adult Immunizations up to date, Last tetanus immunization: unknown. - Social history:: Smoking status: Patient/guardian denies using tobacco. - Ebola Screening: : Patient negative for fever greater than or equal to 101.5 degrees Fahrenheit, and additional compatible Ebola Virus Disease symptoms Patient denies exposure to infectious person Patient denies travel to an Ebola-affected area in the 21 days before illness onset No symptoms or risks identified at this time. ROS: 18:38 Unable to obtain ROS due to baseline dementia. la1 Exam: 18:38 Neck: Trachea midlineSupple, full range of motion without nuchal rigidity, or la1 vertebral point tenderness. No Meningismus. Chest/axilla: Normal chest wall appearance and motion. Nontender with no deformity. No lesions are appreciated. Cardiovascular: Regular rate and rhythm with a normal S1 and S2. No gallops, murmurs, or rubs. Normal PMI, no JVD. No pulse deficits. Respiratory: Lungs have equal breath sounds bilaterally, clear to auscultation No rales, rhonchi or wheezes noted. No increased work of breathing, no retractions or nasal flaring. Abdomen/GI: Soft, non-tender, with normal bowel sounds. No distension No guarding or rebound. No evidence of tenderness throughout. Back: No costovertebral tenderness. 18:38 Constitutional: The patient appears alert, awake. 18:38 Head/face: Noted is a laceration(s), that is superficial, that is linear, 4 cm(s), of the forehead. 18:38 Eyes: Periorbital structures: appear normal, Pupils: equal, round, and reactive to light and accomodation, Conjunctiva: normal, Sclera: no appreciated abnormality. 18:38 ENT: Mouth: what appears to be coffee ground emesis noted to tongue and lips, Posterior pharynx: Airway: normal, Tonsils: are normal in appearance, erythema, is not appreciated, exudate, is not appreciated. 18:38 Musculoskeletal/extremity: Extremities: noted in the left medial ankle and left lateral ankle: ecchymosis, swelling, tenderness. 18:38 Neuro: Orientation: to person, Not oriented to place, time, situation. 21:02 Neuro: Orientation: to person, place \T\ time. pt very hard of hearing, states during la1 initial exam she could not understand the questions. Pt currently oriented x3. Vital Signs: 18:32 BP 141 / 114; Pulse 95; Resp 16 S; Pulse Ox 97% on R/A; Weight 56.7 kg (R); Height 5 ca1 ft. 2 in. (157.48 cm) (R); 19:15 BP 184 / 75; Pulse 63; Resp 16; Pulse Ox 97% on R/A; jb4 20:15 BP 159 / 58; Pulse 63; Resp 18; Pulse Ox 97% on R/A; jb4 21:15 BP 182 / 69; Pulse 62; Resp 16; Temp 98.3(TE); Pulse Ox 98% on R/A; jb4 22:30 BP 170 / 71; Pulse 65; Resp 18; Pulse Ox 99% on R/A; jb4 23:00 BP 158 / 65; Pulse 61; Resp 18; Pulse Ox 97% on R/A; jb4 18:32 Body Mass Index 22.86 (56.70 kg, 157.48 cm) ca1 [place] Coma Score: 19:15 Eye Response: spontaneous(4). Verbal Response: oriented(5). Motor Response: obeys jb4 commands(6). Total: 15. 20:15 Eye Response: spontaneous(4). Verbal Response: oriented(5). Motor Response: obeys jb4 commands(6). Total: 15. 21:15 Eye Response: spontaneous(4). Verbal Response: oriented(5). Motor Response: obeys jb4 commands(6). Total: 15. 22:30 Eye Response: spontaneous(4). Verbal Response: oriented(5). Motor Response: obeys jb4 commands(6). Total: 15. 23:00 Eye Response: spontaneous(4). Verbal Response: oriented(5). Motor Response: obeys jb4 commands(6). Total: 15. Trauma Score (Adult): 19:15 Eye Response: spontaneous(1); Verbal Response: oriented(1); Motor Response: obeys jb4 commands(2); Systolic BP: > 89 mm Hg(4); Respiratory Rate: 10 to 29 per min(4); Maurilio Score: 15; Trauma Score: 12 20:15 Eye Response: spontaneous(1); Verbal Response: oriented(1); Motor Response: obeys jb4 commands(2); Systolic BP: > 89 mm Hg(4); Respiratory Rate: 10 to 29 per min(4); [place] Score: 15; Trauma Score: 12 21:15 Eye Response: spontaneous(1); Verbal Response: oriented(1); Motor Response: obeys jb4 commands(2); Systolic BP: > 89 mm Hg(4); Respiratory Rate: 10 to 29 per min(4); Maurilio Score: 15; Trauma Score: 12 22:30 Eye Response: spontaneous(1); Verbal Response: oriented(1); Motor Response: obeys jb4 commands(2); Systolic BP: > 89 mm Hg(4); Respiratory Rate: 10 to 29 per min(4); [place] Score: 15; Trauma Score: 12 23:00 Eye Response: spontaneous(1); Verbal Response: oriented(1); Motor Response: obeys jb4 commands(2); Systolic BP: > 89 mm Hg(4); Respiratory Rate: 10 to 29 per min(4); [place] Score: 15; Trauma Score: 12 MDM: 18:25 Patient medically screened. la1 21:21 Data reviewed: vital signs, nurses notes, EMS record, lab test result(s), radiologic la1 studies, I have discussed the patient's presentation/case with the attending Emergency Department Physician; and as a result, I will discharge patient. Data interpreted: Pulse oximetry: on room air is 98 %. Interpretation: normal. Counseling: I had a detailed discussion with the patient and/or guardian regarding: the historical points, exam findings, and any diagnostic results supporting the discharge/admit diagnosis, lab results. ED course: called [facility] and spoke with staff who states that patient was wiping her mouth on a towel a bunch of times and there was brown stuff but it was not witnessed that she was vomiting. Pt had diarrhea the day before. At this time patient is at baseline mental status, has not vomited during ED stay. Pt resting in stretcher comfortably, only complaint is that she feels cold. vital signs are unremarkable and labs are improved from previous visit. . 21:47 ED course: No evidence of bowel obstruction on CT, pt tolerating PO in room, has not la1 vomited and no anti emetics have been given, abd is soft and non-tender, no acute findings on CT traumagram. 22:49 ED course: caregiver at bedside, states patient is at baseline, again concerned for la1 vomiting at [facility] but has not witnessed it herself. At this time pt has still not vomited at [facility] has gone up significantly in the last week and a half. 03/21 18:30 Order name: Basic Metabolic Panel; Complete Time: 19:23 la1 03/21 18:30 Order name: CBC with Diff; Complete Time: 19:03 la1 03/21 18:30 Order name: Creatinine for Radiology; Complete Time: 19:23 la1 03/21 18:30 Order name: Type And Screen; Complete Time: 20:32 la1 03/21 18:45 Order name: Protime (+inr); Complete Time: 19:23 la1 03/21 18:45 Order name: Ptt, Activated; Complete Time: 19:23 la1 03/21 18:30 Order name: Labs collected and sent; Complete Time: 19:11 la1 03/21 19:24 Order name: Ankle Right 3 View; Complete Time: 20:32 EDMS 03/21 19:32 Order name: Head C Spine Cap Wo Con; Complete Time: 20:32 EDMS 03/21 20:55 Order name: ABO/RH no charge; Complete Time: 21:16 EDMS 03/21 18:30 Order name: SL; Complete Time: 19:11 la1 03/21 20:32 Order name: Vital Signs; Complete Time: 21:21 la1 03/21 21:54 Order name: PO challenge; Complete Time: 22:16 la1 Administered Medications: 19:00 Drug: NS 0.9% 500 ml Route: IV; Rate: bolus; Site: left forearm; ca1 23:46 Follow up: Response: No adverse reaction jb4 Disposition: 03/22 07:28 Co-signature as Attending Physician, Geovani Gerardo MD I agree with the assessment and kdr plan of care. Disposition: 03/21/19 22:52 Discharged to Home. Impression: Fall From Standing. - Condition is Stable. - Discharge Instructions: Head Injury, Adult, Fall Prevention in the Home, Fall Prevention in Hospitals, Adult. - Medication Reconciliation Form, Thank You Letter form. - Follow up: Private Physician; When: 2 - 3 days; Reason: Recheck today's complaints, Re-evaluation by your physician. - Problem is new. - Symptoms are unchanged. Signatures: Dispatcher [employer] EDMN Geovani Gerardo MD MD kdr Montez Shrestha, PUBLIC HEALTH NUTRITIONIST-C PUBLIC HEALTH NUTRITIONIST-Cla1 Adeola Ty ar5 Acalessio, Kerry, RN RN ca1 Navneet Slater RN jb4 Corrections: (The following items were deleted from the chart) 03/21 19:24 18:31 Ankle Left 3 View+RAD.RAD.BRZ ordered. EDMN EDMN 19:32 18:30 Head C Spine CAP W Con+CT.RAD.BRZ ordered. EDMN EDMN 19:39 19:23 Ankle Right 3 View+RAD.RAD.BRZ ordered. EDMN EDMN 23:46 22:52 03/21/2019 22:52 Discharged to Home. Impression: Fall From Standing. Condition is ar5 Stable. Forms are Medication Reconciliation Form, Thank You Letter, Antibiotic Education, Prescription Opioid Use. Follow up: Private Physician; When: 2 - 3 days; Reason: Recheck today's complaints, Re-evaluation by your physician. Problem is new. Symptoms are unchanged. la1
[2019-03-22 01:18] VITALS: TEMP 98.3
[2019-03-22 01:19] VITALS: BP 170/71; O2SAT 99
== END 2019-03-21 23:46 | disposition home or self-care (01) ==
LOC: ER 18:10
DX: S01.81XA Laceration without foreign body of other part of head, initial encounter (principal); S90.02XA Contusion of left ankle, initial encounter; W19.XXXA Unspecified fall, initial encounter; Y93.9 Activity, unspecified; Y92.129 Unspecified place in nursing home as the place of occurrence of the external cause; I10 Essential (primary) hypertension; Z79.82 Long term (current) use of aspirin; Z88.0 Allergy status to penicillin; Z88.1 Allergy status to other antibiotic agents; Z88.2 Allergy status to sulfonamides; Z86.73 Personal history of transient ischemic attack (TIA), and cerebral infarction without residual deficits
CPT/HCPCS: 85025; 80048; 36415; 86900; 86850; 85610; 86901; 85730; 70450; 71250; 72125; 73610; 99285; J7040

== ENCOUNTER 2019-04-19 12:32 | Emergency (ER) | payer OTHER ==
--- OUTSIDE RECORDS SUMMARY | 2019-04-19 12:34 | XMS REPORT ---
:1930 [facility] [address] [place] [address] Care Team Providers Name Role Phone SMILEY [...] varyby method. CBC W/PLT COUNT & AUTO [id number] 11:50:00 Test Item Value Reference Range Comments WHITE BLOOD CELL COUNT (BEAKER) (test rmlf=484) 8.6 K/ L 3.5-10.5 RED BLOOD CELL COUNT (BEAKER) (test azkm=993) 3.62 M/ L 3.93-5.22 HEMOGLOBIN (BEAKER) (test nleo=153) 11.5 GM/DL 11.2-15.7 HEMATOCRIT (BEAKER) (test ilhp=634) 34.9 % 34.1-44.9 MEAN CORPUSCULAR VOLUME (BEAKER) (test uajk=180) 96.4 fL 79.4-94.8 MEAN CORPUSCULAR HEMOGLOBIN (BEAKER) (test 31.8 pg 25.6-32.2 heow=113) MEAN CORPUSCULAR HEMOGLOBIN CONC (BEAKER) (test 33.0 GM/DL 32.2-35.5 ejoa=998) RED CELL DISTRIBUTION WIDTH (BEAKER) (test 13.2 % 11.7-14.4 fxwf=856) PLATELET COUNT (BEAKER) (test dowc=743) 199 K/CU MM 150-450 MEAN PLATELET VOLUME (BEAKER) (test gyqp=706) 9.9 fL 9.4-12.3 NUCLEATED RED BLOOD CELLS (BEAKER) (test 0 /100 WBC 0-0 hgll=407) (CELLAVISION MANUAL DIFF)2018-12-22 11:50:00 Test Item Value Reference Range Comments NEUTROPHILS - REL (CELLAVISION)(BEAKER) (test 63 % grlt=5752) LYMPHOCYTES - REL (CELLAVISION)(BEAKER) (test 17 % ppdz=1339) MONOCYTES - REL (CELLAVISION)(BEAKER) (test 14 % aiml=9943) EOSINOPHILS - REL (CELLAVISION)(BEAKER) (test 3 % fhjg=2012) PROMYELOCYTES - REL (CELLAVSION)(BEAKER) (test 1 % 0-0 pooi=2068) BANDS - REL (CELLAVISION)(BEAKER) (test gtha=6134) 1 % 0-10 ATYPICAL LYMPHOCYTES - REL (CELLAVISION)(BEAKER) 1 % 0-0 (test xavq=0723) NEUTROPHILS - ABS (CELLAVISION)(BEAKER) (test 5.42 K/ul 1.56-6.13 nihj=6855) LYMPHOCYTES - ABS (CELLAVISION)(BEAKER) (test 1.46 K/ul 1.18-3.74 uujw=6142) MONOCYTES - ABS (CELLAVISION)(BEAKER) (test 1.20 K/uL 0.24-0.36 awui=5120) EOSINOPHILS - ABS (CELLAVISION)(BEAKER) (test 0.26 K/uL 0.04-0.36 sdnk=0031) PROMYELOCYTES - ABS (CELLAVISION)(BEAKER) (test 0.09 K/uL 0.00-0.00 mtkq=7879) BANDS - ABS (CELLAVISION)(BEAKER) (test gpcv=3882) 0.09 K/uL 0.00-0.80 ATYPICAL LYMPHOCYTES - ABS (CELLAVISION)(BEAKER) 0.09 K/uL 0.00-0.00 (test oakj=7697) TOTAL COUNTED (BEAKER) (test nowf=2292) 100 RBC MORPHOLOGY (BEAKER) (test perl=989) Normal WBC MORPHOLOGY (BEAKER) (test jgqq=949) Normal PLT MORPHOLOGY (BEAKER) (test sivp=592) Normal ARTIFACT (CELLAVISION)(BEAKER) (test njyj=1491) Present PLATELET CONCENTRATION (CELLAVISION)(BEAKER) (test Adequate gbti=3307) Received comment: User comments: Slide comments:BASIC METABOLIC [id number] 05:52:00 Test Item Value Reference Range Comments SODIUM (BEAKER) (test 142 meq/L 136-145 hirw=553) POTASSIUM (BEAKER) (test 3.8 meq/L 3.5-5.1 Specimen slightly qafi=881) hemolyzed CHLORIDE (BEAKER) (test 107 meq/L 98-107 fipl=130) CO2 (BEAKER) (test 25 meq/L 22-29 kzbi=236) BLOOD UREA NITROGEN 29 mg/dL 7-21 (BEAKER) (test hkqn=073) CREATININE (BEAKER) (test 1.57 mg/dL 0.57-1.25 Specimen slightly mzan=947) hemolyzed GLUCOSE RANDOM (BEAKER) 109 mg/dL 70-105 (test fpnh=917) CALCIUM (BEAKER) (test 9.7 mg/dL 8.4-10.2 yadk=362) EGFR (BEAKER) (test 31 mL/min/1.73 sq m ESTIMATED GFR IS NOT staf=1785) ACCURATE CREATININE CLEARANCE IN PREDICTING GLOMERULAR FILTRATION RATE. ESTIMATED GFR IS NOT APPLICABLE FOR DIALYSIS PATIENTS. TROPONIN [id number] 06:35:00 Test Item Value Reference Range Comments TROPONIN I (BEAKER) (test xvxr=663) 0.02 ng/mL 0.00-0.03 Troponin I (TnI) levels [...] acute neurological disease, and persistent tachyarrhythmia.BASIC METABOLIC [id number] 09:18:00 Test Item Value Reference Range Comments SODIUM (BEAKER) (test 140 meq/L 136-145 wlzm=829) POTASSIUM (BEAKER) (test 4.5 meq/L 3.5-5.1 gxcy=676) CHLORIDE (BEAKER) (test 108 meq/L 98-107 wbah=844) CO2 (BEAKER) (test ppto=094) 23 meq/L 22-29 BLOOD UREA NITROGEN (BEAKER) 36 mg/dL 7-21 (test bthn=674) CREATININE (BEAKER) (test 1.65 mg/dL 0.57-1.25 gvyf=344) GLUCOSE RANDOM (BEAKER) 102 mg/dL 70-105 (test oxqr=216) CALCIUM (BEAKER) (test 9.4 mg/dL 8.4-10.2 avfa=363) EGFR (BEAKER) (test INSUFFICIENT CLINICAL DATA TO auxq=8399) CALCULATE ESTIMATED GFR. HEMOGLOBIN [id number] 08:56:00 Test Item Value Reference Range Comments HEMOGLOBIN A1C (BEAKER) (test kcum=977) 5.7 % 4.3-6.1 TROPONIN [id number] 08:29:00 Test Item Value Reference Range Comments TROPONIN I (BEAKER) (test dwii=290) 0.04 ng/mL 0.00-0.03 Troponin I (TnI) levels [...] acidosis, acute neurological disease, and persistent tachyarrhythmia.POCT-GLUCOSE [id number] 05:12:00 Test Item Value Reference Range Comments POC-GLUCOSE METER (LYNETTE) 111 mg/dL 70-110 TESTED AT [facility] [address] (test hqfk=5704) [facility] [address] HEPARIN ASSAY - LOW MOLECULAR [id number] 03:28:00 Test Item Value Reference Range Comments LOVENOX-ANTI 10A (LYNETTE) (test iudw=6244) > u/ml 0.60-2.00 Anti-Factor 10-A Level (Heparin Assay for Low Molecular Weight Heparin) Monitoring Guidelines: Blood samples should be obtained 4 hours post subcutaneous injection (time of Peak level) Therapeutic Peak Levels: 0.6-1.0 units/mL twice daily enoxaparin 1.0-2.0 units/mL once daily enoxaparinRef: CHEST 2012;141:[id number] 01:36:00 Test Item Value Reference Range Comments TROPONIN I (LYNETTE) (test nola=261) 0.03 ng/mL 0.00-0.03 Troponin I (TnI) levels [...] neurological disease, and persistent tachyarrhythmia.MR, BRAIN, WITHOUT [id number] 00 :29:00Reason for exam:->Ischemic Stroke EvaluationFINAL REPORT [...] Rosita Yepezeport Verified Date/Time: 12/19/2018 00:29:42 LIPID [id number] 22:50:00 Test Item Value Reference Range Comments TRIGLYCERIDES (BEAKER) (test xtis=776) 233 mg/dL CHOLESTEROL (BEAKER) (test sphs=913) 210 mg/dL HDL CHOLESTEROL (BEAKER) (test tdvo=685) 36 mg/dL LDL CHOLESTEROL CALCULATED (BEAKER) (test 127 mg/dL qmkp=953) Triglyceride Reference Range: Low Risk <150 Borderline 150- 199 High Risk 200-499 Very High Risk >=500Cholesterol Reference Range: Low Risk <200 Borderline 200-239 High Risk > 240HDL Cholesterol Reference Range: Low Risk >=60 High Risk <40LDL Cholesterol Reference Range: Optimal <100 Near Optimal 100-129 Borderline 130-159 High 160-189 Very High >=190TSH/FREE T4 IF [id number] 22:16:00 Test Item Value Reference Range Comments THYROID STIMULATING HORMONE (BEAKER) (test 1.75 uIU/mL 0.35-4.94 goub=995) VITAMIN B12 AND [id number] 22:16:00 Test Item Value Reference Range Comments VITAMIN B12 (BEAKER) (test rdde=332) 1068 pg/mL 213-816 FOLATE (BEAKER) (test nrcx=869) > ng/mL >=7.0 B-TYPE NATRIURETIC FACTOR (BNP)2018-12-18 19:07:00 Test Item Value Reference Range Comments B-TYPE NATRIURETIC PEPTIDE (BEAKER) (test 162 pg/mL 0-100 hlxi=101) TROPONIN [id number] 19:06:00 Test Item Value Reference Range Comments TROPONIN I (BEAKER) (test jdbw=263) 0.01 ng/mL 0.00-0.03 Troponin I (TnI) levels [...] acute neurological disease, and persistent tachyarrhythmia.BASIC METABOLIC [id number] 19:04:00 Test Item Value Reference Range Comments SODIUM (BEAKER) (test 137 meq/L 136-145 xdzq=303) POTASSIUM (BEAKER) (test 4.2 meq/L 3.5-5.1 cohy=358) CHLORIDE (BEAKER) (test 104 meq/L 98-107 bkzu=350) CO2 (BEAKER) (test tusd=026) 25 meq/L 22-29 BLOOD UREA NITROGEN (BEAKER) 46 mg/dL 7-21 (test iite=600) CREATININE (BEAKER) (test 1.85 mg/dL 0.57-1.25 hrvu=751) GLUCOSE RANDOM (BEAKER) 106 mg/dL 70-105 (test njwk=299) CALCIUM (BEAKER) (test 9.9 mg/dL 8.4-10.2 mwen=754) EGFR (BEAKER) (test INSUFFICIENT CLINICAL DATA TO smbx=0666) CALCULATE ESTIMATED GFR. [id number] 18:59:00 Test Item Value Reference Range Comments MAGNESIUM (BEAKER) (test tjjb=234) 1.9 mg/dL 1.6-2.6 CREATINE KINASE (CK)2018-12-18 18:59:00 Test Item Value Reference Range Comments CREATINE KINASE TOTAL (BEAKER) (test bsyn=841) 199 U/L 29-200 URINALYSIS W/ [id number] 18:55:00 Test Item Value Reference Range Comments COLOR (BEAKER) (test mact=574) Yellow CLARITY (BEAKER) (test ezbj=907) Clear SPECIFIC GRAVITY UA (BEAKER) (test gayd=517) 1.021 1.001-1.035 PH UA (BEAKER) (test sfvo=534) 7.0 5.0-8.0 PROTEIN UA (BEAKER) (test slob=276) 20 mg/dL Negative GLUCOSE UA (BEAKER) (test vxqv=749) Negative Negative KETONES UA (BEAKER) (test htll=027) Negative Negative BILIRUBIN UA (BEAKER) (test kmrf=035) Negative Negative BLOOD UA (BEAKER) (test fzrd=719) Negative Negative NITRITE UA (BEAKER) (test unaf=162) Negative Negative LEUKOCYTE ESTERASE UA (BEAKER) (test ucww=397) Negative Negative UROBILINOGEN UA (BEAKER) (test gnam=987) 0.2 mg/dL 0.2-1.0 RBC UA (BEAKER) (test uvvp=003) 0 /HPF WBC UA (BEAKER) (test famb=866) < /HPF SQUAMOUS EPITHELIAL (BEAKER) (test sjzc=859) < /HPF SOURCE(BEAKER) (test pzca=2986) CT, CAROTID, [id number] 18:51:00Reason for exam:->GENERALIZED WEAKNESS, NOT ASSOCIATED WITH [...] moderate stenoses of the bilateral ACAs. Bilateral manager field sales are predominantly supplied by [employer]. The major [...] Signed: Renetta Alvarezflores Verified Date/Time: 12/18/2018 18:51:19 [id number] 18:51:00FINAL REPORT CT, CTANGIO BRAIN, CT, [...] moderate stenoses of the bilateral ACAs. Bilateral manager field sales are predominantly supplied by [employer]. The major [...] Verified Date/Time: 12/18/2018 18:51:19 CT, CEREBRAL PERFUSION [id number] 18:51:00FINAL REPORT CT, CTANGIO BRAIN, CT, [...] moderate stenoses of the bilateral ACAs. Bilateral manager field sales are predominantly supplied by [employer]. The major [...] Signed: Renetta Alvarez Verified Date/Time: 12/18/2018 18:51:19 [id number] 18:47:00 Test Item Value Reference Range Comments PROTIME (BEAKER) (test yetv=066) 17.0 seconds 11.9-14.2 INR (BEAKER) (test cntr=109) 1.5 <=5.9 PARTIAL THROMBOPLASTIN TIME (BEAKER) (test 33.2 seconds 22.5-36.0 drop=392) Effective 09/10/2018: PT Reference Range ChangeNew: 11.9-14.2 Previous: 11.7- 14.7RECOMMENDED COUMADIN/WARFARIN INR THERAPY RANGESSTANDARD DOSE: 2.0-3.0 Includes: PROPHYLAXIS for venous thrombosis, systemic embolization; TREATMENT for venous thrombosis and/or pulmonary embolus.HIGH RISK: Target INR is2.5-3.5 for patients wiht mechanical heart valves.CBC W/PLT COUNT & AUTO [id number] 18:41:00 Test Item Value Reference Range Comments WHITE BLOOD CELL COUNT (BEAKER) (test weqd=363) 9.8 K/ L 3.5-10.5 RED BLOOD CELL COUNT (BEAKER) (test ojqb=812) 3.15 M/ L 3.93-5.22 HEMOGLOBIN (BEAKER) (test rrxd=639) 10.3 GM/DL 11.2-15.7 HEMATOCRIT (BEAKER) (test bnnf=870) 30.7 % 34.1-44.9 MEAN CORPUSCULAR VOLUME (BEAKER) (test uwzl=006) 97.5 fL 79.4-94.8 MEAN CORPUSCULAR HEMOGLOBIN (BEAKER) (test 32.7 pg 25.6-32.2 nqlo=074) MEAN CORPUSCULAR HEMOGLOBIN CONC (BEAKER) (test 33.6 GM/DL 32.2-35.5 bqzz=075) RED CELL DISTRIBUTION WIDTH (BEAKER) (test 13.2 % 11.7-14.4 vewp=061) PLATELET COUNT (BEAKER) (test gpxs=962) 201 K/CU MM 150-450 MEAN PLATELET VOLUME (BEAKER) (test jrog=009) 9.8 fL 9.4-12.3 NUCLEATED RED BLOOD CELLS (BEAKER) (test 0 /100 WBC 0-0 nwog=693) NEUTROPHILS RELATIVE PERCENT (BEAKER) (test 78 % mbmi=410) LYMPHOCYTES RELATIVE PERCENT (BEAKER) (test 9 % jjsc=430) MONOCYTES RELATIVE PERCENT (BEAKER) (test 11 % adxe=743) EOSINOPHILS RELATIVE PERCENT (BEAKER) (test 1 % riun=396) BASOPHILS RELATIVE PERCENT (BEAKER) (test 0 % rjry=509) NEUTROPHILS ABSOLUTE COUNT (BEAKER) (test 7.64 K/ L 1.56-6.13 nehn=611) LYMPHOCYTES ABSOLUTE COUNT (BEAKER) (test 0.91 K/ L 1.18-3.74 ovjw=657) MONOCYTES ABSOLUTE COUNT (BEAKER) (test 1.09 K/ L 0.24-0.36 hugm=490) EOSINOPHILS ABSOLUTE COUNT (BEAKER) (test 0.12 K/ L 0.04-0.36 kzhk=241) BASOPHILS ABSOLUTE COUNT (BEAKER) (test 0.04 K/ L 0.01-0.08 dcwp=141) IMMATURE GRANULOCYTES-RELATIVE PERCENT (BEAKER) 0 % 0-1 (test zwkt=6944) CT, BRAIN/STROKE [id number] 18:04:00Reason for exam:->strokeWhat is the patient's sedation [...]
[2019-04-19 12:50] LABS: Absolute Lymphocytes (CBC) 0.5 K/uL (0.7-4.9); Basophils % 0.3 % (0-1.3); Hematocrit 30.6 % (36.0-45.0); Lymphocytes % 4.3 % (15.3-44.8); MPV 8.1 fL (7.6-11.3); RBC Red Blood Cell Count 3.49 M/uL (3.86-4.86)
--- NOTE | 2019-04-19 13:00 | RAD REPORT ---
EXAM DESCRIPTION: CT - Ct Stroke Brain Wo Cont - 04/19/2019 12:47 pm CLINICAL HISTORY: Aphasia;Hemiplegia CVA symptomology COMPARISON: Head Brain Wo Cont dated 03/14/2019; Head Brain Wo Cont dated 02/21/2019 TECHNIQUE: All CT scans are performed using dose optimization technique as appropriate and may inclu de automated exposure control or mA/KV adjustment according to patient size. FINDINGS: No intracranial hemorrhage, hydrocephalus or extra-axial fluid collection.Advanced general ized brain atrophy is present with advanced periventricular and deep white matter chronic microvascul ar ischemic changes.No areas of brain edema or evidence of midline shift. 12 mm old lacunar infarct o n the left. The paranasal sinuses and mastoids are clear. The calvarium is intact. IMPRESSION: No acute intracranial abnormality. If there is continued clinical concern for CVA, MR i maging of the brain would be recommended. The findings were discussed with ER physician Dr. Lazaro on 04/19/2019 at 11:55 p.m. by telephone.
[2019-04-19 13:01] LABS: Protime INR 1.27
[2019-04-19 13:11] LABS: ALT/SGPT 12 U/L (12-78); AST/SGOT 12 U/L (15-37); Albumin 2.7 g/dL (3.4-5.0); Alkaline Phosphatase 96 U/L (45-117); BUN Blood Urea Nitrogen 14 mg/dL (7-18); Bicarbonate 27 mmol/L (21-32); Bilirubin Direct 0.1 mg/dL (0-0.2); Bilirubin Total 0.4 mg/dL (0.2-1.0); Glucose Level 142 mg/dL (74-106); Magnesium 1.7 mg/dL (1.8-2.4); Potassium 4.1 mmol/L (3.5-5.1); Protein, Total 7.4 g/dL (6.4-8.2); Sodium Level 140 mmol/L (136-145); Troponin (Emerg Dept Use Only) < 0.02 ng/mL (0.0-0.045)
[2019-04-19 13:15] LABS: Blood Morphology Comment NOT SEEN (NOT SEEN); Platelet Estimate ADEQ; Urine White Blood Cell Casts OK
--- NOTE | 2019-04-19 13:16 | RAD REPORT ---
EXAM DESCRIPTION: RAD - Chest Single View - 04/19/2019 1:07 pm CLINICAL HISTORY: cva Chest pain. COMPARISON: Chest Single View dated 03/14/2019; Chest Single View dated 02/21/2019 FINDINGS: Portable technique limits examination quality. The lungs are grossly clear. The heart is upper limit of normal in size. No displaced fractures. IMPRESSION: No acute intrathoracic process suspected.
[2019-04-19] MEDS ORDERED: NA CHLORIDE 0.9% 1,000 ML ONE (13:30)
[2019-04-19] MEDS ORDERED: MAGNESIUM SULFATE 1 gm IVPB 1 GM/100 ML BAG IV ONE (13:30)
--- NOTE | 2019-04-19 14:03 | RAD REPORT ---
EXAM DESCRIPTION: CT - Head angio - 04/19/2019 1:47 pm CLINICAL HISTORY: cva Headache, drowsiness, CVA symptomology. COMPARISON: Ct Stroke Brain Wo Cont dated 04/19/2019; Head Brain Wo Cont dated 03/14/2019 TECHNIQUE: CT angiography of the head was performed with MIPs. All CT scans are performed using dose optimization technique as appropriate and may include automated exposure control or mA/KV adjustment according to patient size. FINDINGS: No evidence of aneurysm is detected. No flow-limiting stenosis or vascular malformation id entified. Antegrade flow is seen in the vertebral arteries. Right-sided dominant vertebral artery noted. The visualized dural venous sinuses are patent. IMPRESSION: No significant flow abnormality is detected.
--- NOTE | 2019-04-19 14:07 | RAD REPORT ---
EXAM DESCRIPTION: CT - Neck Angio - 04/19/2019 1:47 pm CLINICAL HISTORY: cva Headache, drowsiness, CVA symptomology COMPARISON: No comparisons TECHNIQUE: CT angiography of the neck vessels was performed with MIPs. All CT scans are performed using dose optimization technique as appropriate and may include automated exposure control or mA/KV adjustment according to patient size. FINDINGS: A left aortic arch is identified. No significant flow abnormality is seen of the common carotid bilaterally. Moderate atheromatous plaquing is seen involving both carotid bulbs resulting in narrowing estimated at 50-70% bilaterally based on NASCET criteria. No severe carotid stenosis seen. Normal flow is seen within both vertebral arteries. The right vertebral artery appears dominant. IMPRESSION: Moderate stenosis of both carotid bulbs estimated at 50-70% based on NASCET criteria jeff aterally, and resulting from atheromatous plaquing.
--- NOTE | 2019-04-19 14:32 | ER ---
Nurse's Notes [facility] Name: Verna Talbert Age: 88 yrs Sex: Female : 1930 Arrival Date: 04/19/2019 Time: 12:38 Bed 2 Private MD: Diagnosis: Transient cerebral ischemic attack, unspecified Presentation: 04/19 12:33 Presenting complaint: EMS states: pt from [facility], tw2 last known normal was 11 hours ago on phone with family, today noted RIGHT sided droop and weakness, vs stable, BGL 131, afebrile. Transition of care: patient was not received from another setting of care. No acute neurological deficit is noted. The patients blood glucose was checked before arriving to the hospital and was found to be normal. Onset of symptoms was April 19, 2019. Risk Assessment: Do you want to hurt yourself or someone else? Patient reports no desire to harm self or others. Initial Sepsis Screen: Does the patient meet any 2 criteria? No. Patient's initial sepsis screen is negative. Does the patient have a suspected source of infection? No. Patient's initial sepsis screen is negative. Care prior to arrival: None. 12:33 Method Of Arrival: EMS: [facility] tw2 12:33 Acuity: NELLIE 2 tw2 Triage Assessment: 12:38 The onset of the patients symptoms was April 18, 2019 at 01:00. General: Appears in tw2 no apparent distress. slender, Behavior is cooperative. Pain: Denies pain. EENT: No signs and/or symptoms were reported regarding the EENT system. Neuro: Reports weakness in right arm and right leg. Cardiovascular: Heart tones S1 S2 Patient's skin is warm and dry. Respiratory: Airway is patent Respiratory effort is even, unlabored, Respiratory pattern is regular, symmetrical, Breath sounds are clear bilaterally. GI: No signs and/or symptoms were reported involving the gastrointestinal system. Abdomen is flat, Bowel sounds present X 4 quads. : No signs and/or symptoms were reported regarding the genitourinary system. Derm: No signs and/or symptoms reported regarding the dermatologic system. Musculoskeletal: weakness noted to RIGHT arm and leg. Stroke Activation: Symptom onset > 6 hours Physician: Stroke Attending; Name: ; Notified At: ; Arrived At: Physician: Chief Stroke Resident; Name: ; Notified At: ; Arrived At: Physician: Stroke Resident; Name: ; Notified At: ; Arrived At: Physician: ED Attending; Name: ; Notified At: ; Arrived At: Physician: ED Resident; Name: ; Notified At: ; Arrived At: Historical: - Allergies: 12:58 Alprazolam; tw2 12:58 Azithromycin; tw2 12:58 Levaquin; tw2 12:58 PENICILLINS; tw2 12:58 Sulfa (Sulfonamide Antibiotics); tw2 - Home Meds: 12:58 trazodone 50 mg Oral tab 1.5 tab at bedtime [Active]; tramadol 50 mg Oral tab 0.5 tab tw2 every 4 hours [Active]; Zyprexa 2.5 mg Oral tab 0.5 tabs at 7am, 1500pm, and 2300pm [Active]; 13:45 furosemide 20 mg Oral tab 1 tab once daily [Active]; olanzapine 5 mg oral TbDL 1 tab tw2 once daily [Active]; levothyroxine 50 mcg tab 1 tab once daily [Active]; losartan 25 mg Oral tab 1 tab once daily [Active]; magnesium oxide 400 mg Oral tab daily [Active]; carvedilol 6.25 mg Oral tab 1 tab 2 times per day [Active]; sertraline 100 mg oral tab 1 tab once daily [Active]; aspirin 81 mg Oral chew 1 tab once daily [Active]; Docusate 100 mg 1 tab daily [Active]; ferrous sulfate 325 mg (65 mg iron) Oral tab twice a day [Active]; melatonin 3 mg Oral tab nightly [Active]; nitrofurantoin macrocrystal 100 mg Oral cap 1 cap twice a day [Active]; pantoprazole 40 mg Oral TbEC 1 tab once daily [Active]; potassium chloride 10 mEq Oral cpER 1 cap once daily [Active]; quetiapine 25 mg Oral tab 1 tab nightly [Active]; senna 8.6 mg Oral cap 1 tab once daily [Active]; - PMHx: 12:58 CVA; Hypertension; tw2 - Immunization history:: Adult Immunizations. - Social history:: Smoking status: . - Ebola Screening: : Patient denies exposure to infectious person. Screenin:25 Abuse screen: Denies threats or abuse. Nutritional screening: No deficits noted. tw2 Tuberculosis screening: No symptoms or risk factors identified. Fall Risk None identified. Assessment: 12:44 Reassessment: pt transported to CT with MADDY Vaughan and Roland Metz at this time. tw2 13:04 VAN Scoring: Arm Drift: Minor drift Visual Disturbance: No visual disturbance noted. tw2 Aphasia: Patient exhibits both expressive and receptive aphasia. Provider notified of +VAN scoring. T-PA (Activase) Screening: Contraindications: Patient reports onset of signs and symptoms of stroke greater than 6 hours ago: Yes. Reassessment: see triage assessment. 13:23 Patient has been NPO before screening. The patient is alert, and able to follow tw2 commands. The patient exhibits slurred or garbled speech. per Manage at [place] [facility] at bedside this is pts normal speech pattern The patient is not exhibiting difficulty speaking. The patient does not exhibit difficulty understanding words. The patient is able to swallow own secretions with no drooling or need for suction. Patient tolerated one teaspoon of water. No drooling, immediate coughing, gurgling, or clearing of the throat was noted. The patient tolerated 90mL of water. No drooling, immediate coughing, gurgling, or clearing of the throat was noted. The patient passed the bedside swallow screening. Oral medications may be given as ordered. Contact Physician for further diet orders. Provider notified of bedside swallow screening results: Edin MICHELE. 13:36 Reassessment: pts son and spouse at bedside at this time, questioning results from tw2 previous visit and that " nothing was done about her vomiting feces, she was just treated for a UTI and sent back home and we have a follow up appt with GI doctor on the ", provider notified. 13:59 Reassessment: Patient appears in no apparent distress at this time. Patient and/or tw2 family updated on plan of care and expected duration. Pain level reassessed. 14:33 Reassessment: Patient appears in no apparent distress at this time. Patient and/or tw2 family updated on plan of care and expected duration. Pain level reassessed. pt and family educated as to protocols for transfer and that I will keep them informed once we get acceptance. 15:24 Reassessment: Patient appears in no apparent distress at this time. Patient and/or tw2 family updated on plan of care and expected duration. Pain level reassessed. 16:19 Reassessment: Patient appears in no apparent distress at this time. Patient and/or ph family updated on plan of care and expected duration. Pain level reassessed. Pt resting quietly w/ stable VSS, awaiting transfer, family at bedside. 17:42 Reassessment: Patient appears in no apparent distress at this time. Patient and/or tw2 family updated on plan of care and expected duration. Pain level reassessed. Vital Signs: 12:50 BP 83 / 71; Pulse 72; Resp 17; Temp 97.9(TE); Pulse Ox 95% on R/A; Weight 54.43 kg (R); tw2 Pain 0/10; 13:59 BP 159 / 60; Pulse 73; Resp 17; Pulse Ox 97% on R/A; tw2 14:07 BP 153 / 50; Pulse 76; Resp 17; Pulse Ox 98% on R/A; tw2 14:32 BP 113 / 83; Pulse 83; Resp 17; Pulse Ox 98% on R/A; tw2 15:22 BP 165 / 66; Pulse 83; Resp 17; Pulse Ox 97% on R/A; tw2 16:19 BP 142 / 84; Pulse 76; Resp 18; Pulse Ox 97% on R/A; ph 17:41 BP 146 / 78; Pulse 71; Resp 17; Pulse Ox 97% on R/A; tw2 12:50 provider aware tw2 NIH Stroke Scale Scores: 12:38 NIHSS Score: 10 tw2 12:39 NIHSS Score: 10 jr8 ED Course: 12:38 Patient arrived in ED. tw2 12:38 Edin Emerson PA is PHCP. jr8 12:38 German Lazaro MD is Attending Physician. jr8 12:38 Bed in low position. Call light in reach. Side rails up X2. Adult w/ patient. Cardiac tw2 monitor on. Pulse ox on. NIBP on. 12:42 Inserted saline lock: 20 gauge in right antecubital area, using aseptic technique. tw2 ,using aseptic technique. per MADDY Nguyen Blood collected. 12:49 CT Stroke Brain w/o Contrast In Process Unspecified. EDMS 12:50 Triage completed. tw2 12:52 Arm band placed on. tw2 13:01 Alexus Guardado RN is Primary Nurse. tw2 13:04 Stroke CXR 1 View In Process Unspecified. EDMS 13:48 CT Head Angio In Process Unspecified. EDMS 13:[address] In Process Unspecified. EDMS 15:43 waiting for bed assignment and admit approval for transfer to [facility]. ms 17:08 Report given to MADDY Seymour at [facility]. tw2 17:39 No provider procedures requiring assistance completed. tw2 17:41 Patient transferred, IV remains in place. tw2 Administered Medications: 13:59 Drug: NS 0.9% 1000 ml Route: IV; Rate: 1000 ml; Site: right antecubital; tw2 17:41 Follow up: Response: No adverse reaction; IV Status: Completed infusion; IV Intake: tw2 1000ml 13:59 Drug: Magnesium Sulfate 1 grams Route: IVPB; Infused Over: 1 hrs; Site: right tw2 antecubital; 15:25 Follow up: Response: No adverse reaction; IV Status: Completed infusion tw2 Point of Care Testing: Blood Glucose: 12:50 Blood Glucose: 132 mg/dL; tw2 12:50 per Roland Metz tw2 Ranges: Intake: 17:41 IV: 1000ml; Total: 1000ml. tw2 Outcome: 14:30 ER care complete, transfer ordered by jr8 17:40 Transferred by ground EMS to [facility]. tw2 17:40 Condition: stable 17:40 Instructed on the need for transfer. 17:57 Patient left the ED. tw2 NIH Stroke Scale - NIH Stroke Score Date: 04/19/2019 Time: 12:38 Total Score = 10 1a. Level of Consciousness (LOC) - 0(Alert) 1b. Level of Consciousness (LOC) (Year \\T\\ Age) - 2(Neither) 1c. LOC Commands (Open \\T\\ Closes Eyes/Investor Relations Specialist) - 0(Both) 2. Best Gaze (Lateral Gaze Paresis) - 0(Normal) 3. Visual Field Loss - 0(No visual loss) 4. Facial Palsy - 0(Normal) 5a. Left Arm: Motor (10-second hold) - 0(No drift) 5b. Right Arm: Motor (10-second hold) - 1(Drift) 6a. Left Leg: Motor (5-second hold - always test supine) - 0(No drift) 6b. Right Leg: Motor (5-second hold - always test supine) - 1(Drift) 7. Limb Ataxia (finger/nose \\T\\ heel/swift - test with eyes open) - 2(Present in two limbs) 8. Sensory Loss (pinprick arms/legs/face) - 0(Normal) 9. Best Language: Aphasia (description/naming/reading) - 2(Severe aphasia) 10. Dysarthria (speech clarity - read or repeat words) - 2(Severe) 11. Extinction and Inattention (visual/tactile/auditory/spatial/personal) - 0(No abnormality) Initials: tw2 NIH Stroke Scale - NIH Stroke Score Date: 04/19/2019 Time: 12:39 Total Score = 10 1a. Level of Consciousness (LOC) - 0(Alert) 1b. Level of Consciousness (LOC) (Year \\T\\ Age) - 2(Neither) 1c. LOC Commands (Open \\T\\ Closes Eyes/Investor Relations Specialist) - 0(Both) 2. Best Gaze (Lateral Gaze Paresis) - 0(Normal) 3. Visual Field Loss - 0(No visual loss) 4. Facial Palsy - 0(Normal) 5a. Left Arm: Motor (10-second hold) - 0(No drift) 5b. Right Arm: Motor (10-second hold) - 1(Drift) 6a. Left Leg: Motor (5-second hold - always test supine) - 0(No drift) 6b. Right Leg: Motor (5-second hold - always test supine) - 1(Drift) 7. Limb Ataxia (finger/nose \\T\\ heel/swift - test with eyes open) - 2(Present in two limbs) 8. Sensory Loss (pinprick arms/legs/face) - 0(Normal) 9. Best Language: Aphasia (description/naming/reading) - 2(Severe aphasia) 10. Dysarthria (speech clarity - read or repeat words) - 2(Severe) 11. Extinction and Inattention (visual/tactile/auditory/spatial/personal) - 0(No abnormality) Initials: jr8 Signatures: Dispatcher [employer] Stephanie Zhu ms, Josh, PA PA jr8 Germaine Beck RN RN Alexus Guardado RN RN tw2
--- NOTE | 2019-04-19 14:33 | EDPHYS ---
Physician Documentation [facility] Name: Verna Talbert Age: 88 yrs Sex: Female : 1930 Arrival Date: 04/19/2019 Time: 12:38 Bed 2 Private MD: ED Physician German Lazaro HPI: 04/19 12:39 This 88 yrs old Female presents to ER via Unassigned with complaints of S/S jr8 of Possible Stroke. 12:39 The patient's problem is reported as altered mental status, decreased responsiveness, jr8 dysphasia, slurred speech, slow speech, incoherent speech, weakness, in the right upper extremity, in the right lower extremity. Onset: The symptoms/episode began/occurred acutely, 11 hour(s) ago. Duration: The episode is continuous. Context: occurred at home. The symptoms are alleviated by nothing. The symptoms are aggravated by nothing. Associated signs and symptoms: The patient has no apparent associated signs or symptoms. Severity of symptoms: At their worst the symptoms were moderate in the emergency department the symptoms are unchanged. Patient's baseline: Neuro: alert and fully oriented, Motor: no deficits, Ambulation: walks with assist only, uses walker, Speech: normal. It is unknown whether or not the patient has had similar symptoms in the past. It is unknown whether or not the patient has recently seen a physician. Patient brought in by EMS after assisted living staff found patient with decreased level of consciousness and weakness. Last known normal 11 hours ago . Historical: - Allergies: 12:58 Alprazolam; tw2 12:58 Azithromycin; tw2 12:58 Levaquin; tw2 12:58 PENICILLINS; tw2 12:58 Sulfa (Sulfonamide Antibiotics); tw2 - Home Meds: 12:58 trazodone 50 mg Oral tab 1.5 tab at bedtime [Active]; tramadol 50 mg Oral tab 0.5 tab tw2 every 4 hours [Active]; Zyprexa 2.5 mg Oral tab 0.5 tabs at 7am, 1500pm, and 2300pm [Active]; 13:45 furosemide 20 mg Oral tab 1 tab once daily [Active]; olanzapine 5 mg oral TbDL 1 tab tw2 once daily [Active]; levothyroxine 50 mcg tab 1 tab once daily [Active]; losartan 25 mg Oral tab 1 tab once daily [Active]; magnesium oxide 400 mg Oral tab daily [Active]; carvedilol 6.25 mg Oral tab 1 tab 2 times per day [Active]; sertraline 100 mg oral tab 1 tab once daily [Active]; aspirin 81 mg Oral chew 1 tab once daily [Active]; Docusate 100 mg 1 tab daily [Active]; ferrous sulfate 325 mg (65 mg iron) Oral tab twice a day [Active]; melatonin 3 mg Oral tab nightly [Active]; nitrofurantoin macrocrystal 100 mg Oral cap 1 cap twice a day [Active]; pantoprazole 40 mg Oral TbEC 1 tab once daily [Active]; potassium chloride 10 mEq Oral cpER 1 cap once daily [Active]; quetiapine 25 mg Oral tab 1 tab nightly [Active]; senna 8.6 mg Oral cap 1 tab once daily [Active]; - PMHx: 12:58 CVA; Hypertension; tw2 - Immunization history:: Adult Immunizations. - Social history:: Smoking status: . - Ebola Screening: : Patient denies exposure to infectious person. ROS: 12:39 Eyes: Negative for injury, pain, redness, and discharge, ENT: Negative for injury, jr8 pain, and discharge, Neck: Negative for injury, pain, and swelling, Cardiovascular: Negative for chest pain, palpitations, and edema, Respiratory: Negative for shortness of breath, cough, wheezing, and pleuritic chest pain, Abdomen/GI: Negative for abdominal pain, nausea, vomiting, diarrhea, and constipation, Back: Negative for injury and pain, MS/Extremity: Negative for injury and deformity, Skin: Negative for injury, rash, and discoloration. 12:39 Neuro: Positive for altered mental status, gait disturbance, speech changes, weakness. Exam: 12:39 Eyes: Pupils equal round and reactive to light, extra-ocular motions intact. Lids and jr8 lashes normal. Conjunctiva and sclera are non-icteric and not injected. Cornea within normal limits. Periorbital areas with no swelling, redness, or edema. ENT: Nares patent. No nasal discharge, no septal abnormalities noted. Tympanic membranes are normal and external auditory canals are clear. Oropharynx with no redness, swelling, or masses, exudates, or evidence of obstruction, uvula midline. Mucous membranes moist. Neck: Trachea midline, no thyromegaly or masses palpated, and no cervical lymphadenopathy. Supple, full range of motion without nuchal rigidity, or vertebral point tenderness. No Meningismus. Cardiovascular: Regular rate and rhythm with a normal S1 and S2. No gallops, murmurs, or rubs. Normal PMI, no JVD. No pulse deficits. Respiratory: Lungs have equal breath sounds bilaterally, clear to auscultation and percussion. No rales, rhonchi or wheezes noted. No increased work of breathing, no retractions or nasal flaring. Abdomen/GI: Soft, non-tender, with normal bowel sounds. No distension or tympany. No guarding or rebound. No evidence of tenderness throughout. Back: No spinal tenderness. No costovertebral tenderness. Full range of motion. Skin: Warm, dry with normal turgor. Normal color with no rashes, no lesions, and no evidence of cellulitis. MS/ Extremity: Pulses equal, no cyanosis. Neurovascular intact 13:05 Radiologist reports: Negative for acute findings jr8 Vital Signs: 12:50 BP 83 / 71; Pulse 72; Resp 17; Temp 97.9(TE); Pulse Ox 95% on R/A; Weight 54.43 kg (R); tw2 Pain 0/10; 13:59 BP 159 / 60; Pulse 73; Resp 17; Pulse Ox 97% on R/A; tw2 14:07 BP 153 / 50; Pulse 76; Resp 17; Pulse Ox 98% on R/A; tw2 14:32 BP 113 / 83; Pulse 83; Resp 17; Pulse Ox 98% on R/A; tw2 15:22 BP 165 / 66; Pulse 83; Resp 17; Pulse Ox 97% on R/A; tw2 16:19 BP 142 / 84; Pulse 76; Resp 18; Pulse Ox 97% on R/A; ph 17:41 BP 146 / 78; Pulse 71; Resp 17; Pulse Ox 97% on R/A; tw2 12:50 provider aware tw2 NIH Stroke Scale Scores: 12:38 NIHSS Score: 10 tw2 12:39 NIHSS Score: 10 jr8 MDM: 12:38 Patient medically screened. jr8 12:42 ED course: Patient outside tPA window. Could still be in thrombolectomy window. Will jr8 CTA if possible and transfer for neurologic care . 14:29 Data reviewed: vital signs, nurses notes, lab test result(s), EKG, radiologic studies, [facility] CT scan, plain films. Data interpreted: Pulse oximetry: on room air is 98 %. Interpretation: normal. Counseling: I had a detailed discussion with the patient and/or guardian regarding: the historical points, exam findings, and any diagnostic results supporting the discharge/admit diagnosis, lab results, radiology results, the need to transfer to another facility, [facility] does not immediately have the required specialist. 04/19 12:39 Order name: Hepatic Function; Complete Time: 13:13 8 04/19 12:39 Order name: Troponin (emerg Dept Use Only); Complete Time: 13:04/19 12:39 Order name: Magnesium; Complete Time: 13:8 04/19 12:39 Order name: Basic Metabolic Panel; Complete Time: 13:13 04/19 12:39 Order name: CBC with Diff; Complete Time: 13:24 04/19 12:39 Order name: Protime (+inr); Complete Time: 13:04/19 12:39 Order name: Ptt, Activated; Complete Time: 13:8 04/19 12:39 Order name: CT Stroke Brain w/o Contrast; Complete Time: 13:8 04/19 12:39 Order name: Stroke CXR 1 View; Complete Time: 13:24 8 04/19 12:57 Order name: Glucose, Ancillary Testing; Complete Time: 13:06 EDMS 04/19 13:14 Order name: CT Head Angio; Complete Time: 14:14 04/19 13:14 Order name: Neck Angio CT; Complete Time: 14:14 04/19 13:16 Order name: CBC Smear Scan; Complete Time: 13:24 EDMS 04/19 12:39 Order name: EKG; Complete Time: 12:40 04/19 12:39 Order name: Accucheck; Complete Time: 13:04/19 12:39 Order name: Cardiac monitoring; Complete Time: 13:01 04/19 12:39 Order name: EKG - Nurse/Tech; Complete Time: 13:04/19 12:39 Order name: IV Saline Lock; Complete Time: 13:01 jr8 01/05 12:39 Order name: Labs collected and sent; Complete Time: 04/19 12:39 Order name: NPO; Complete Time: 04/19 12:39 Order name: O2 Per Protocol; Complete Time: 04/19 12:39 Order name: O2 Sat Monitoring; Complete Time: 04/19 12:39 Order name: Stroke Swallow Screen; Complete Time: 13: Administered Medications: 13:59 Drug: NS 0.9% 1000 ml Route: IV; Rate: 1000 ml; Site: right antecubital; tw2 17:41 Follow up: Response: No adverse reaction; IV Status: Completed infusion; IV Intake: tw2 1000ml 13:59 Drug: Magnesium Sulfate 1 grams Route: IVPB; Infused Over: 1 hrs; Site: right tw2 antecubital; 15:25 Follow up: Response: No adverse reaction; IV Status: Completed infusion tw2 Point of Care Testing: Blood Glucose: 12:50 Blood Glucose: 132 mg/dL; tw2 12:50 per Roland Metz tw2 Ranges: Critical Glucose Levels:Adult <50 mg/dl or >400 mg/dl <40 mg/dl or >180 mg/dl Disposition: 04/20 07:34 Co-signature as Attending Physician, German Lazaro MD I agree with the assessment and anmol plan of care. Disposition: 04/19/19 14:[address] [facility]. Diagnosis is Transient cerebral ischemic attack, unspecified. - Reason for transfer: Higher level of care. - Accepting physician is [facility]. - Condition is Stable. - Problem is new. - Symptoms have improved. NIH Stroke Scale - NIH Stroke Score Date: 04/19/2019 Time: 12:38 Total Score = 10 1a. Level of Consciousness (LOC) - 0(Alert) 1b. Level of Consciousness (LOC) (Year \T\ Age) - 2(Neither) 1c. LOC Commands (Open \T\ Closes Eyes/Investigation Division Sergeant) - 0(Both) 2. Best Gaze (Lateral Gaze Paresis) - 0(Normal) 3. Visual Field Loss - 0(No visual loss) 4. Facial Palsy - 0(Normal) 5a. Left Arm: Motor (10-second hold) - 0(No drift) 5b. Right Arm: Motor (10-second hold) - 1(Drift) 6a. Left Leg: Motor (5-second hold - always test supine) - 0(No drift) 6b. Right Leg: Motor (5-second hold - always test supine) - 1(Drift) 7. Limb Ataxia (finger/nose \T\ heel/swift - test with eyes open) - 2(Present in two limbs) 8. Sensory Loss (pinprick arms/legs/face) - 0(Normal) 9. Best Language: Aphasia (description/naming/reading) - 2(Severe aphasia) 10. Dysarthria (speech clarity - read or repeat words) - 2(Severe) 11. Extinction and Inattention (visual/tactile/auditory/spatial/personal) - 0(No abnormality) Initials: tw2 NIH Stroke Scale - NIH Stroke Score Date: 04/19/2019 Time: 12:39 Total Score = 10 1a. Level of Consciousness (LOC) - 0(Alert) 1b. Level of Consciousness (LOC) (Year \T\ Age) - 2(Neither) 1c. LOC Commands (Open \T\ Closes Eyes/Investigation Division Sergeant) - 0(Both) 2. Best Gaze (Lateral Gaze Paresis) - 0(Normal) 3. Visual Field Loss - 0(No visual loss) 4. Facial Palsy - 0(Normal) 5a. Left Arm: Motor (10-second hold) - 0(No drift) 5b. Right Arm: Motor (10-second hold) - 1(Drift) 6a. Left Leg: Motor (5-second hold - always test supine) - 0(No drift) 6b. Right Leg: Motor (5-second hold - always test supine) - 1(Drift) 7. Limb Ataxia (finger/nose \T\ heel/swift - test with eyes open) - 2(Present in two limbs) 8. Sensory Loss (pinprick arms/legs/face) - 0(Normal) 9. Best Language: Aphasia (description/naming/reading) - 2(Severe aphasia) 10. Dysarthria (speech clarity - read or repeat words) - 2(Severe) 11. Extinction and Inattention (visual/tactile/auditory/spatial/personal) - 0(No abnormality) Initials: jr8 Signatures: Dispatcher [employer] German Fournier MD MD cha Roszak, Edin, PA PA jr8 Alexus Guardado RN RN tw2 Corrections: (The following items were deleted from the chart) 04/19 17:57 14:30 04/19/2019 14:[address] [facility]. tw2 Diagnosis is Transient cerebral ischemic attack, unspecified. Reason for transfer: Higher level of care. Accepting physician is [facility]. Condition is Stable. Problem is new. Symptoms have improved. jr8
[2019-04-19 19:03] VITALS: TEMP 97.9
[2019-04-19 19:09] VITALS: O2SAT 97
[2019-04-19 19:12] VITALS: BP 146/78
--- NOTE | 2019-04-20 05:32 | EKG ---
Test Date: 2019-04-19 Test Time: 12:55:42 Professor Of Public Administration: LJ MEASUREMENT RESULTS: Intervals: Rate: 72 OR: 224 QRSD: 104 QT: 424 QTc: 464 Marshall: P: 77 OR: 224 QRS: 46 T: 261 INTERPRETIVE STATEMENTS: Sinus rhythm with 1st degree AV block Left ventricular hypertrophy with repolarization abnormality Abnormal ECG Compared to ECG 03/14/2019 13:38:03 Early repolarization now present Intraventricular conduction delay no longer present Electronically Signed On 04-20-19 05:30:34 LINE MOVER by Maximino Ngo
== END 2019-04-19 17:57 | disposition short-term general hospital (02) ==
LOC: ER 12:32
DX: G45.9 Transient cerebral ischemic attack, unspecified (principal); R29.710 NIHSS score 10; Z79.82 Long term (current) use of aspirin; Z88.0 Allergy status to penicillin; Z88.2 Allergy status to sulfonamides; Z88.3 Allergy status to other anti-infective agents; Z88.8 Allergy status to other drugs, medicaments and biological substances
CPT/HCPCS: 96365; 96361; 93005; 85025; 80048; 36415; 83735; 85610; 82947; 80076; 85730; 84484; 70496; 70498; 70450; 71045; 99285; Q9967; J3475; J7030